=== PATIENT | male | born 1955 | race Caucasian/White ===

== ENCOUNTER 2022-12-20 14:49 | Inpatient (IN) | payer OTHER, MEDICAID ==
[~2022-12-20] VITALS: Ht 182.9 cm; Wt 127.5 kg
[2022-12-20] MEDS ORDERED: SODIUM CHLORIDE 0.9% 1,000 ML IV ONE (15:15)
[2022-12-20 15:37] LABS: Basophils # (auto) 0.1 10 ^3/uL (0-0.2); Basophils % (auto) 1.1 % (0.0-2.0); Eosinophils # (auto) 0 10 ^3/uL (0-0.8); Eosinophils % (auto) 0.1 % (0.0-7.0); Hematocrit 46.5 % (41.0-53.0); Hemoglobin 15.5 g/dL (13.5-17.5); Lymphocytes # (auto) 0.6 10 ^3/uL (0.4-5.4); Lymphocytes % (auto) 8.4 % (10.0-50.0); Mean Corpuscular Hemoglobin 30.9 pg (28.0-32.0); Mean Corpuscular Hgb Conc. 33.2 g/dL (32.0-36.0); Monocytes # (auto) 0.8 10 ^3/uL (0-1.3); Monocytes % (auto) 10.6 % (0.0-12.0); Neutrophils # (auto) 5.7 10 ^3/uL (1.6-8.6); Neutrophils % (auto) 79.8 % (37.0-80.0); Nucleated Red Blood Cells % 0.3 %; Red Cell Distribution Width 14.4 % (11.8-14.3); White Blood Cell 7.1 10^3/uL (4.4-10.8)
[2022-12-20 15:54] LABS: Albumin 3.1 g/dL (3.4-5.0); BUN/Creatinine Ratio 16.7; Calcium 8.8 mg/dL (8.5-10.1); Magnesium 1.4 mg/dL (1.6-2.6)
[2022-12-20 15:57] LABS: Lactic Acid w/Reflex 2.3 mmol/L (0.4-2.0)
[2022-12-20 15:57] LABS: Bilirubin, Total 2.1 mg/dL (0.2-1.0); Total Protein 7.4 g/dL (6.4-8.2)
[2022-12-20 16:12] LABS: Potassium 2.9 mmol/L (3.5-5.1)
[2022-12-20] MEDS ORDERED: CEFTRIAXONE SODIUM 2 GM in D5W 5% 50 ML IV ONE (17:15)
[2022-12-20] MEDS ORDERED: POTASSIUM EFFERVESENT TAB 25 MEQ PO ONE (17:15)
[2022-12-20 17:28] LABS: Urine Bacteria NONE SEEN /hpf (None Seen); Urine Blood Negative /uL (Negative); Urine Hyaline Cast MANY /lpf (0 - 2); Urine Mucus FEW (None Seen); Urine Specific Gravity 1.024 (1.001-1.035); Urine WBC 3 /hpf (0 - 3)
[2022-12-20] MEDS ORDERED: DEXTROSE (50%) 50ML SYRG IV PRN (23:00)
[2022-12-20] MEDS ORDERED: NITROGLYCERIN 0.4 MG SL TAB SL PRN (23:00)
[2022-12-20] MEDS ORDERED: ONDANSETRON HCL 4 MG/2 ML VIAL IV PRN (23:00)
[2022-12-20] MEDS ORDERED: DOCUSATE SOD 100 MG CAP PO PRN (23:00)
[2022-12-20] MEDS ORDERED: ACETAMINOPHEN 325 MG TAB PO PRN (23:00)
[2022-12-21] MEDS: HYDROcodone-ACET 5/325MG TAB PO PRN ×3 (00:29→20:22)
[2022-12-21 05:50] LABS: Basophils # (auto) 0.1 10 ^3/uL (0-0.2); Basophils % (auto) 0.9 % (0.0-2.0); Eosinophils # (auto) 0.1 10 ^3/uL (0-0.8); Eosinophils % (auto) 0.9 % (0.0-7.0); Hematocrit 45.2 % (41.0-53.0); Hemoglobin 14.8 g/dL (13.5-17.5); Lymphocytes # (auto) 1.2 10 ^3/uL (0.4-5.4); Lymphocytes % (auto) 17.1 % (10.0-50.0); Mean Corpuscular Hemoglobin 30.6 pg (28.0-32.0); Mean Corpuscular Hgb Conc. 32.8 g/dL (32.0-36.0); Mean Corpuscular Volume 93.3 fL (80.0-100.0); Monocytes # (auto) 1.1 10 ^3/uL (0-1.3); Neutrophils # (auto) 4.4 10 ^3/uL (1.6-8.6); Neutrophils % (auto) 65.1 % (37.0-80.0); Nucleated Red Blood Cells % 0.1 %; Red Blood Cells 4.85 10^6/uL (4.5-5.90); Red Cell Distribution Width 14.3 % (11.8-14.3); White Blood Cell 6.8 10^3/uL (4.4-10.8)
[2022-12-21] MEDS: SODIUM CHLOR 0.9% PF (SALINE LOCK) 10ML VIAL/SYR IV SCH ×3 (06:01→22:11)
[2022-12-21 06:12] LABS: Albumin 2.9 g/dL (3.4-5.0); Calcium 8.2 mg/dL (8.5-10.1); Potassium 3.5 mmol/L (3.5-5.1)
[2022-12-21 06:15] LABS: BUN/Creatinine Ratio 21.4; Bilirubin, Total 1.1 mg/dL (0.2-1.0); Total Protein 6.4 g/dL (6.4-8.2)
[2022-12-21] MEDS: ACCU-CHEK COMFORT CURVE STRIP VI SCH ×4 (06:41→22:11)
[2022-12-21] MEDS: InsuLIN REG 1unit/0.01ml Soln (100units/ml) SC SCH ×4 (06:41→22:14)
[2022-12-21] MEDS: FAMOTIDINE (10MG/ML) 2ML VL IV SCH (09:32)
[2022-12-21] MEDS: APIXABAN 2.5 MG TAB PO SCH ×2 (09:33→22:00)
[2022-12-21] MEDS: CARVEDILOL 3.125 MG TAB PO SCH ×2 (09:33→22:04)
[2022-12-21] MEDS: cefTRIAXone 1GM/50ML D5W 50 ML IV SCH (09:34)
[2022-12-21] MEDS ORDERED: FUROSEMIDE 20 MG/2 ML VIAL IV SCH (10:00)
[2022-12-21] MEDS ORDERED: LORazepam 2MG/ML-1ML VIAL IV PRN (12:00)
[2022-12-21 12:20] LABS: Cholesterol 93 mg/dL (< 200)
[2022-12-21 12:23] LABS: HDL Cholesterol 33 mg/dL (40-59); LDL Cholesterol 58 mg/dL (< 100); Triglycerides 77 mg/dL (< 150)
[2022-12-21] MEDS: TAMSULOSIN HYDROCHLORIDE 0.4 MG CAP PO SCH (17:37)
[2022-12-21] MEDS ORDERED: ATORVASTATIN 20 MG TAB PO SCH (22:00)
[2022-12-22] MEDS: HYDROcodone-ACET 5/325MG TAB PO PRN ×2 (02:17→21:43)
[2022-12-22] MEDS: SODIUM CHLOR 0.9% PF (SALINE LOCK) 10ML VIAL/SYR IV SCH ×3 (06:01→21:56)
[2022-12-22] MEDS: ACCU-CHEK COMFORT CURVE STRIP VI SCH ×4 (06:40→21:57)
[2022-12-22] MEDS: InsuLIN REG 1unit/0.01ml Soln (100units/ml) SC SCH ×4 (06:42→21:57)
[2022-12-22] MEDS: FAMOTIDINE (10MG/ML) 2ML VL IV SCH (09:32)
[2022-12-22] MEDS: cefTRIAXone 1GM/50ML D5W 50 ML IV SCH (09:32)
[2022-12-22] MEDS: APIXABAN 2.5 MG TAB PO SCH ×2 (09:33→21:42)
[2022-12-22] MEDS ORDERED: CARVEDILOL 3.125 MG TAB PO SCH (10:00)
[2022-12-22] MEDS ORDERED: FUROSEMIDE 20 MG/2 ML VIAL IV ONE (10:00)
[2022-12-22] MEDS: MORPHINE SULFATE INJ 2 MG/ml SYRG IV PRN (10:11)
[2022-12-22] MEDS: MAGNESIUM SULFATE 1GM/100ML 100 ML IV SCH ×2 (11:25→12:40)
[2022-12-22] MEDS: CARVEDILOL 12.5 MG TAB PO SCH ×2 (11:26→21:42)
[2022-12-22] MEDS: ATORVASTATIN 20 MG TAB PO SCH ×2 (11:27→21:43)
[2022-12-22] MEDS: SACUBITRIL-VALSARTAN 24mg/26mg TAB PO SCH ×2 (11:27→22:46)
[2022-12-22] MEDS: FUROSEMIDE 20 MG/2 ML VIAL IV SCH ×3 (17:48→18:00)
[2022-12-22] MEDS: TAMSULOSIN HYDROCHLORIDE 0.4 MG CAP PO SCH (17:48)
[2022-12-22 21:25] LABS: Basophils # (auto) 0.1 10 ^3/uL (0-0.2); Eosinophils # (auto) 0 10 ^3/uL (0-0.8); Eosinophils % (auto) 0.1 % (0.0-7.0); Hematocrit 45.1 % (41.0-53.0); Hemoglobin 14.7 g/dL (13.5-17.5); Lymphocytes # (auto) 0.7 10 ^3/uL (0.4-5.4); Lymphocytes % (auto) 8.1 % (10.0-50.0); Mean Corpuscular Hemoglobin 30.4 pg (28.0-32.0); Mean Corpuscular Hgb Conc. 32.7 g/dL (32.0-36.0); Mean Corpuscular Volume 92.9 fL (80.0-100.0); Monocytes # (auto) 0.8 10 ^3/uL (0-1.3); Monocytes % (auto) 9.9 % (0.0-12.0); Neutrophils # (auto) 6.9 10 ^3/uL (1.6-8.6); Neutrophils % (auto) 80.9 % (37.0-80.0); Nucleated Red Blood Cells % 0.1 %; Red Blood Cells 4.85 10^6/uL (4.5-5.90); Red Cell Distribution Width 14.1 % (11.8-14.3); White Blood Cell 8.5 10^3/uL (4.4-10.8)
[2022-12-22 21:37] LABS: Albumin 2.7 g/dL (3.4-5.0); BUN/Creatinine Ratio 14.6; Calcium 8.9 mg/dL (8.5-10.1); Potassium 3.3 mmol/L (3.5-5.1)
[2022-12-22 21:39] LABS: Bilirubin, Total 1.2 mg/dL (0.2-1.0); Total Protein 7.2 g/dL (6.4-8.2)
[2022-12-22] MEDS: HALOPERIDOL LACTATE 5 MG/ML INJ VIAL IM PRN (21:45)
[2022-12-22] MEDS: PIPERACILLIN-TAZOB 3.375GM 100 ML IV SCH (21:56)
[2022-12-23] MEDS: SODIUM CHLOR 0.9% PF (SALINE LOCK) 10ML VIAL/SYR IV SCH ×3 (06:00→22:11)
[2022-12-23] MEDS: PIPERACILLIN-TAZOB 3.375GM 100 ML IV SCH ×3 (06:00→22:05)
[2022-12-23 06:07] LABS: Basophils # (auto) 0.1 10 ^3/uL (0-0.2); Basophils % (auto) 0.9 % (0.0-2.0); Eosinophils # (auto) 0 10 ^3/uL (0-0.8); Eosinophils % (auto) 0.1 % (0.0-7.0); Hematocrit 42.9 % (41.0-53.0); Hemoglobin 14.1 g/dL (13.5-17.5); Lymphocytes # (auto) 0.8 10 ^3/uL (0.4-5.4); Lymphocytes % (auto) 10.2 % (10.0-50.0); Mean Corpuscular Hemoglobin 30.6 pg (28.0-32.0); Mean Corpuscular Volume 92.7 fL (80.0-100.0); Monocytes # (auto) 0.9 10 ^3/uL (0-1.3); Monocytes % (auto) 12.2 % (0.0-12.0); Neutrophils # (auto) 5.8 10 ^3/uL (1.6-8.6); Neutrophils % (auto) 76.6 % (37.0-80.0); Red Blood Cells 4.62 10^6/uL (4.5-5.90); Red Cell Distribution Width 14.5 % (11.8-14.3); White Blood Cell 7.6 10^3/uL (4.4-10.8)
[2022-12-23 06:22] LABS: Albumin 2.6 g/dL (3.4-5.0); Calcium 8.1 mg/dL (8.5-10.1); Potassium 3.5 mmol/L (3.5-5.1)
[2022-12-23 06:27] LABS: BUN/Creatinine Ratio 19.1; Bilirubin, Total 1.4 mg/dL (0.2-1.0)
[2022-12-23] MEDS: ACCU-CHEK COMFORT CURVE STRIP VI SCH ×4 (08:32→22:10)
[2022-12-23] MEDS: MORPHINE SULFATE INJ 2 MG/ml SYRG IV PRN ×2 (08:38→22:10)
[2022-12-23] MEDS: InsuLIN REG 1unit/0.01ml Soln (100units/ml) SC SCH ×4 (08:39→22:00)
[2022-12-23] MEDS: APIXABAN 2.5 MG TAB PO SCH ×2 (10:01→22:12)
[2022-12-23] MEDS: FAMOTIDINE (10MG/ML) 2ML VL IV SCH (10:01)
[2022-12-23] MEDS: CARVEDILOL 12.5 MG TAB PO SCH ×2 (10:03→22:00)
[2022-12-23] MEDS: SACUBITRIL-VALSARTAN 24mg/26mg TAB PO SCH ×2 (10:06→22:00)
[2022-12-23 13:35] VITALS: BP 103/71
[2022-12-23 17:00] VITALS: BP 113/70
[2022-12-23] MEDS ORDERED: SODIUM CHLORIDE 0.9% 1,000 ML IV SCH (17:00)
[2022-12-23] MEDS: TAMSULOSIN HYDROCHLORIDE 0.4 MG CAP PO SCH (18:17)
[2022-12-23] MEDS: FUROSEMIDE 20 MG/2 ML VIAL IV SCH (18:19)
[2022-12-23 18:23] VITALS: BP 103/71
[2022-12-23 22:00] VITALS: BP 138/81
[2022-12-23] MEDS: ATORVASTATIN 20 MG TAB PO SCH (22:00)
[2022-12-24] MEDS: HALOPERIDOL LACTATE 5 MG/ML INJ VIAL IM PRN (02:10)
[2022-12-24] MEDS ORDERED: dilTIAZem 25 MG/5 ML VIAL IV ONE (03:00)
[2022-12-24 05:00] VITALS: BP 126/68
[2022-12-24] MEDS: PIPERACILLIN-TAZOB 3.375GM 100 ML IV SCH (06:00)
[2022-12-24] MEDS: FUROSEMIDE 20 MG/2 ML VIAL IV SCH (06:00)
[2022-12-24] MEDS: SODIUM CHLOR 0.9% PF (SALINE LOCK) 10ML VIAL/SYR IV SCH ×2 (06:13→22:12)
[2022-12-24] MEDS: InsuLIN REG 1unit/0.01ml Soln (100units/ml) SC SCH ×4 (06:51→22:00)
[2022-12-24] MEDS: ACCU-CHEK COMFORT CURVE STRIP VI SCH ×4 (06:52→22:08)
[2022-12-24 09:00] VITALS: BP 110/69
[2022-12-24] MEDS: FAMOTIDINE (10MG/ML) 2ML VL IV SCH (10:17)
[2022-12-24] MEDS: APIXABAN 2.5 MG TAB PO SCH ×2 (10:17→22:08)
[2022-12-24] MEDS: SACUBITRIL-VALSARTAN 24mg/26mg TAB PO SCH ×2 (10:17→22:07)
[2022-12-24] MEDS: CARVEDILOL 12.5 MG TAB PO SCH ×2 (10:18→22:08)
[2022-12-24 13:15] VITALS: BP 97/52
[2022-12-24 13:29] LABS: Basophils # (auto) 0.1 10 ^3/uL (0-0.2); Basophils % (auto) 1.2 % (0.0-2.0); Eosinophils # (auto) 0 10 ^3/uL (0-0.8); Eosinophils % (auto) 0.6 % (0.0-7.0); Hematocrit 41.9 % (41.0-53.0); Hemoglobin 13.9 g/dL (13.5-17.5); Lymphocytes % (auto) 12.6 % (10.0-50.0); Mean Corpuscular Hemoglobin 30.5 pg (28.0-32.0); Mean Corpuscular Hgb Conc. 33.1 g/dL (32.0-36.0); Mean Corpuscular Volume 92.1 fL (80.0-100.0); Monocytes # (auto) 0.7 10 ^3/uL (0-1.3); Monocytes % (auto) 9.6 % (0.0-12.0); Neutrophils # (auto) 5.8 10 ^3/uL (1.6-8.6); Nucleated Red Blood Cells % 0.1 %; Red Blood Cells 4.55 10^6/uL (4.5-5.90); Red Cell Distribution Width 14.1 % (11.8-14.3); White Blood Cell 7.6 10^3/uL (4.4-10.8)
[2022-12-24 13:46] LABS: Albumin 2.1 g/dL (3.4-5.0); Calcium 7.9 mg/dL (8.5-10.1); Potassium 3.2 mmol/L (3.5-5.1)
[2022-12-24 13:50] LABS: BUN/Creatinine Ratio 24.8; Bilirubin, Total 0.6 mg/dL (0.2-1.0); Total Protein 6.1 g/dL (6.4-8.2)
[2022-12-24] MEDS ORDERED: POTASSIUM CHL 20 Meq TABLET PO ONE (14:45)
[2022-12-24] MEDS: ATORVASTATIN 20 MG TAB PO SCH ×2 (14:45→22:07)
[2022-12-24] MEDS ORDERED: POTASSIUM CHLORIDE 20 MEQ, LIDOCAINE 1% (LOCAL ANESTH.) 2 ML in SODIUM CHL 0.9% 100 ML IV ONE (14:45)
[2022-12-24] MEDS: HYDROcodone-ACET 5/325MG TAB PO PRN ×2 (14:58→22:08)
[2022-12-24 17:00] VITALS: BP 90/49
[2022-12-24] MEDS: TAMSULOSIN HYDROCHLORIDE 0.4 MG CAP PO SCH (18:01)
[2022-12-24 21:51] VITALS: BP 110/72
[2022-12-24] MEDS ORDERED: HALOPERIDOL LACTATE 5 MG/ML INJ VIAL IM PRN (22:00)
[2022-12-24] MEDS: AMOXICILLIN/CLAVUL 875 MG TAB PO SCH (22:06)
[2022-12-25 05:00] VITALS: BP 118/61
[2022-12-25] MEDS: SODIUM CHLOR 0.9% PF (SALINE LOCK) 10ML VIAL/SYR IV SCH ×3 (06:00→20:47)
[2022-12-25] MEDS: InsuLIN REG 1unit/0.01ml Soln (100units/ml) SC SCH ×4 (06:32→20:47)
[2022-12-25] MEDS: ACCU-CHEK COMFORT CURVE STRIP VI SCH ×4 (06:32→20:47)
[2022-12-25 09:00] VITALS: BP 113/64
[2022-12-25] MEDS: AMOXICILLIN/CLAVUL 875 MG TAB PO SCH ×2 (09:54→20:47)
[2022-12-25] MEDS: SACUBITRIL-VALSARTAN 24mg/26mg TAB PO SCH ×2 (09:54→20:29)
[2022-12-25] MEDS: APIXABAN 2.5 MG TAB PO SCH ×2 (09:54→20:29)
[2022-12-25] MEDS: HYDROcodone-ACET 5/325MG TAB PO PRN ×2 (09:55→18:39)
[2022-12-25] MEDS ORDERED: PANTOPRAZOLE 40 MG TAB PO SCH (10:00)
[2022-12-25] MEDS ORDERED: FUROSEMIDE 40 MG TAB PO SCH (10:00)
[2022-12-25] MEDS: CARVEDILOL 12.5 MG TAB PO SCH ×2 (10:20→20:45)
[2022-12-25 13:00] VITALS: BP 108/70
[2022-12-25 17:00] VITALS: BP 121/77
[2022-12-25] MEDS: TAMSULOSIN HYDROCHLORIDE 0.4 MG CAP PO SCH (18:39)
[2022-12-25] MEDS: ATORVASTATIN 20 MG TAB PO SCH (20:28)
== END 2022-12-25 20:40 | DRG 64 ==
LOC: EDBD 14:49 → ER 14:55 → OVERFLOW 22:56 → TELE-WESTW 12-23 14:03
PROVIDERS: ADMIT Nurse Practitioner Family; ATTEND Internal Medicine
DX: I63.9 Cerebral infarction, unspecified (principal); G93.41 Metabolic encephalopathy; I50.23 Acute on chronic systolic (congestive) heart failure; J96.01 Acute respiratory failure with hypoxia; E87.20 Acidosis, unspecified; I31.39 Other pericardial effusion (noninflammatory); J98.11 Atelectasis; L03.115 Cellulitis of right lower limb; L03.116 Cellulitis of left lower limb; N17.9 Acute kidney failure, unspecified; Z20.822 Contact with and (suspected) exposure to COVID-19; E11.65 Type 2 diabetes mellitus with hyperglycemia; E66.01 Morbid (severe) obesity due to excess calories; E78.5 Hyperlipidemia, unspecified; E87.6 Hypokalemia; F17.200 Nicotine dependence, unspecified, uncomplicated; I11.0 Hypertensive heart disease with heart failure; I48.91 Unspecified atrial fibrillation; J32.0 Chronic maxillary sinusitis; N40.0 Benign prostatic hyperplasia without lower urinary tract symptoms; Z79.01 Long term (current) use of anticoagulants; Z79.84 Long term (current) use of oral hypoglycemic drugs; Z79.899 Other long term (current) drug therapy; Z68.35 Body mass index [BMI] 35.0-35.9, adult
CPT/HCPCS: 36415; 70450; 70551; 71045; 74176; 80053; 80061; 81001; 82140; 82962; 83036; 83605; 83735; 83880; 84132; 84484; 85025; 87040; 87426; 92610; 93005; 93306; 93886; 93970; 95819; 97163; G0378; J0696; J1815; J2001; J2543; J3490; J7060

== ENCOUNTER 2025-10-08 19:42 | Inpatient (IN) | payer OTHER, MEDICAID ==
[~2025-10-08] VITALS: Ht 170.2 cm; Wt 104.9 kg
[2025-10-08] MEDS: INSULIN DRIP 100 UNIT/100ML 100 ML IV SCH
--- NOTE | 2025-10-08 20:17 | ED.PDOC ---
History of Present Illness HPI Comments 70 y/o obese M is BIBA from private residence for c/c of ALOC. Per EMS personnel report, patient lives at home alone and was found on the floor by neighbors since 1500, this afternoon. Patient is reported to be oriented to name, currently. Limited known history of DM. Patient has not been taking his DM medic ations for the past 2 months. On scene blood glucose read 'HI." No further acute symptoms reported. Additional history is limited, due to patient's current condition and absence of family/property caretaker historians. Per previous [facility] medical record, patient has a history of CVA, AFib, CHF, HTN, pericardial effusion, HLD, DM II, JASON, BPH, and bilateral lower extremity cellulitis. Chief Complaint: ALOC Time Seen by MD: 19:50 Reviewed Notes: Nurses Notes, Wood Milling Machine Hand Notes, Medications, Allergies Allergies: Coded Allergies: NO KNOWN ALLERGIES (Unverified , 12/21/22) Mode of Arrival: EMS Past Medical History PAST MEDICAL HISTORY: AFIB, CHF, CVA, DM, High Lipids, HTN Past Medical History (Other): pericardial effusion, JASON, BPH, bilateral lower extremity cellulitis Surgical History: Unknown, Unobtainable, Pt Confused Family History Family History: Unknown, Unobtainable, Pt Confused Social History Smoker: Unknown, Unobtainable, Pt Confused Alcohol: Unknown, Unobtainable, Pt Confused Drugs: Unknown, Unobtainable, Pt Confused Lives In: Home All Other Systems: Deferred (due to patient being altered ) Physical Exam General Appearance: Moderate Distress, Obese HEENT: Normal ENT Inspection, Pharynx Normal, TMs Normal Neck: Full Range of Motion, Non-Tender, Normal, Normal Inspection Respiratory: Chest Non-Tender, Lungs Clear, No Accessory Muscle Use, No Respiratory Distress, Normal Breath Sounds Cardiovascular: Irregular, No Edema, No JVD, No Murmur, No Gallop, Tachycardia Breast Exam: Deferred Gastrointestinal: No Organomegaly, Non Tender, No Pulsatile Mass, Normal Bowel Sounds, Soft Genitalia: Deferred Pelvic: Deferred Rectal: Deferred Extremities: No calf tenderness, Normal capillary refill, Pedal edema Musculoskeletal : Apperance: Normal Neurologic: trim machine operator II-XII nml as Tested, Motor Weakness, No Sensory Deficits, Other (Altered mental status) Cerebellar Function: Normal Reflexes: Normal Skin: Dry, Pallor, Warm Lymphatic: No Adenopathy Was a procedure done? Was a procedure done?: No Differential Dx Considerations may include: hyperglycemia, DKA,, metabolic encephalopathy, dehydration, electrolyte imbalan ce, intracranial hemorrhaging, CVA/TIA, seizure, TBI, among others X-Ray, Labs, Meds, VS Vital Signs Date Time Temp Pulse Resp B/P (MAP) Pulse Ox O2 Delivery O2 Flow Rate FiO2 10/08/25 22:00 97.2 119 17 130/78 (95) 94 97.2 10/08/25 21:22 17 94 Room Air* 0 21 10/08/25 20:30 97.2 98 17 116/7 (43) 94 97.2 10/08/25 19:46 97.8 130 20 125/82 98 97.8 Lab Test 10/08/25 22:19 10/08/25 21:56 10/08/25 20:58 10/08/25 20:09 Range/Units Urine Color Light-yellow Yellow Urine Clarity Clear Clear Urine pH 5.0 5.0-9.0 Urine Specific [place] 1.020 1.001-1.035 Urine Protein Negative Negative Urine Ketones Trace Negative Urine Blood Trace H Negative /uL Urine Nitrite Negative Negative Urine Bilirubin Negative Negative Urine Urobilinogen Normal Negative mg/dL Urine Leukocyte Esterase Negative Negative /uL Urine RBC 5 0 - 3 /hpf Urine Microscopic WBC 2 0-3 /HPF Urine Squamous Epithelial Cells Few <5 /hpf Urine Bacteria None seen None Seen /hpf Urine Hyaline Casts Few 0 - 2 /lpf Urine Glucose 4+ H Normal mg/dL Urine Opiates Screen Neg NEGATIVE Urine Fentanyl Screen Neg NEGATIVE Urine Barbiturates Screen Neg NEGATIVE Urine Phencyclidine Screen Neg NEGATIVE Urine Amphetamines Screen Neg NEGATIVE Urine Benzodiazepines Screen Neg NEGATIVE Urine Cocaine Screen Neg NEGATIVE Urine Cannabinoids Screen Neg NEGATIVE Lactic Acid Level 2.1 *H 2.4 *H 0.4-2.0 mmol/L Troponin I High Sensitivity 24 25 </=54 ng/L White Blood Count 8.5 4.4-10.8 10^3/uL Red Blood Count 5.72 4.5-5.90 10^6/uL Hemoglobin 18.3 H 13.5-17.5 g/dL Hematocrit 53.0 41.0-53.0 % Mean Corpuscular Volume 92.7 80.0-100.0 fL Mean Corpuscular Hemoglobin 32.0 28.0-32.0 pg Mean Corpuscular Hemoglobin Concent 34.5 32.0-36.0 g/dL Red Cell Distribution Width 13.3 11.8-14.3 % Platelet Count 208 140-450 10^3/uL Mean Platelet Volume 9.5 6.9-10.8 fL Neutrophils (%) (Auto) 84.2 H 37.0-80.0 % Lymphocytes (%) (Auto) 5.7 L 10.0-50.0 % Monocytes (%) (Auto) 9.7 0.0-12.0 % Eosinophils (%) (Auto) 0.2 0.0-7.0 % Basophils (%) (Auto) 0.2 0.0-2.0 % Neutrophils # (Auto) 7.2 1.6-8.6 10 ^3/uL Lymphocytes # (Auto) 0.5 0.4-5.4 10 ^3/uL Monocytes # (Auto) 0.8 0-1.3 10 ^3/uL Eosinophils # (Auto) 0 0-0.8 10 ^3/uL Basophils # (Auto) 0 0-0.2 10 ^3/uL Nucleated Red Blood Cells 0.1 % Sodium Level 135 L 136-145 mmol/L Potassium Level 4.4 3.5-5.1 mmol/L Chloride Level 97 L 98-107 mmol/L Carbon Dioxide Level 22 20-31 mmol/L Anion Gap 16 H 5-15 Blood Urea Nitrogen 74 H 9-23 mg/dL Creatinine 2.52 H 0.700-1.30 mg/dL Glomerular Filtration Rate Calc 27 >90 mL/min BUN/Creatinine Ratio 29.4 H 10.0-20.0 Serum Glucose 562 *H 74-106 mg/dL Hemoglobin A1c Pending Serum Osmolality Pending Calcium Level 10.4 8.7-10.4 mg/dL Beta-Hydroxybutyric Acid 2.350 H < 0.4 mmol/L Plasma/Serum Blood Alcohol < 3.0 <10 mg/dL Current Medications Medications (Trade) Dose Ordered Sig/Bonita Route Start Time Stop Time Status Last Admin Sodium Chloride 1,000 ml @ 1,000 mls/hr Q1H ONCE IV 10/08/25 20:30 10/08/25 21:29 DC 10/08/25 20:35 Insulin Human Regular (InsuLIN R) 5 units ONCE ONCE IV 10/08/25 20:30 10/08/25 20:31 DC 10/08/25 20:35 Vancomycin HCl 250 ml @ 250 mls/hr ONCE ONCE IV 10/08/25 21:30 10/08/25 22:29 DC 10/08/25 22:25 Ceftriaxone Sodium 50 ml @ 100 mls/hr ONCE ONCE IV 10/08/25 21:30 10/08/25 21:59 DC 10/08/25 21:50 Sodium Chloride 2,000 ml @ 2,000 mls/hr ONCE ONCE IV 10/08/25 21:45 10/08/25 22:44 DC 10/08/25 21:45 Insulin Human Regular (InsuLIN R) 10 units ONCE ONCE IV 10/08/25 21:45 10/08/25 21:46 DC 10/08/25 21:52 IV Hep-Lock was established. We did get an initial lactic acid level that was elevated There is a concern that this patient may have sepsis so we did give the patient normal saline per sepsis protocol The chemistry panel showed an anion gap of 16 The BUN is 74 and the creatinine is 2.52 The patient's glucose is also elevated at 562 The urine tox is negative The urine test is negative for any infection After blood cultures were done, the patient was started on vancomycin and Rocephin The patient was also given insulin 5 units IV push initially and then 10 units IV push The patient's heart rate has been significantly elevated and it seems to be atrial fibrillation with rapid response The patient is being started on Cardizem at 15 mg IV push The patient was also started on a Cardizem drip The patient is being admitted at this time. Images Reviewed?: Images reviewed and evaluated by me Time of 1ST Reevaluation: 20:20 Reevaluation 1ST: Unchanged Time of 2ND Reevaluation: 23:33 Reevaluation 2ND: Unchanged Patient Education/Counseling: Diagnosis, Treatment, Prognosis Family Education/Counseling: No Family Present SEPSIS Sepsis Screen Date sepsis recognized/suspect: Oct 08, 2025 Time Sepsis recognized/suspect: 1939 Recent Procedure: No On Antibiotic Therapy: No Respiratory Rate >20: No Heart Rate >90: Yes Temp<36 C (96.8 F) or >38.3 C: No SBP <90 or MAP <65 mmHG: No New Acute Mental Status Change: No Is the patient on CPAP, BIPAP,: No Physician Orders Chest Portable (10/08/25 19:51) Head Without Contrast (10/08/25 19:51) Cell Tender Helper (10/08/25 19:51) Pulse Oximetry (10/08/25 19:51) Blood Pressure (10/08/25 19:51) Heplock Iv (10/08/25 19:51) Blood Culture (10/08/25 19:51) Electrocardigram (10/08/25 19:51) Bee Catheters (10/08/25 ) Vital Signs Date Time Temp Pulse Resp B/P (MAP) Pulse Ox O2 Delivery O2 Flow Rate FiO2 10/08/25 22:00 97.2 119 17 130/78 (95) 94 97.2 10/08/25 21:22 17 94 Room Air* 0 21 10/08/25 20:30 97.2 98 17 116/7 (43) 94 97.2 10/08/25 19:46 97.8 130 20 125/82 98 97.8 Laboratory Tests Test 10/08/25 20:09 10/08/25 21:56 Lactic Acid Level 2.4 mmol/L (0.4-2.0) *H 2.1 mmol/L (0.4-2.0) *H White Blood Count 8.5 10^3/uL (4.4-10.8) Medications Medications Dose Ordered Sig/Bonita Route Start Time Stop Time Status Last Admin Dose Admin Ceftriaxone Sodium 50 ml @ 100 mls/hr ONCE ONCE IV 10/08/25 21:30 10/08/25 21:59 DC 10/08/25 21:50 Insulin Human Regular 5 units ONCE ONCE IV 10/08/25 20:30 10/08/25 20:31 DC 10/08/25 20:35 Insulin Human Regular 10 units ONCE ONCE IV 10/08/25 21:45 10/08/25 21:46 DC 10/08/25 21:52 Sodium Chloride 1,000 ml @ 1,000 mls/hr Q1H ONCE IV 10/08/25 20:30 10/08/25 21:29 DC 10/08/25 20:35 Sodium Chloride 2,000 ml @ 2,000 mls/hr ONCE ONCE IV 10/08/25 21:45 10/08/25 22:44 DC 10/08/25 21:45 Vancomycin HCl 250 ml @ 250 mls/hr ONCE ONCE IV 10/08/25 21:30 10/08/25 22:29 DC 10/08/25 22:25 Departure 1 Departure Time of Disposition: 23:32 Impression: Primary Impression: Atrial fibrillation with rapid ventricular response Additional Impressions: Altered mental status Qualified Codes: R41.82 - Altered mental status, unspecified Elevated lactic acid level Hyperglycemia Disposition: ADMITTED INPATIENT Admit to: [facility] Condition: Fair Critical Care Note Critical Care Time?: Yes (45 min-critical care time only) Stability Stability form required: Yes Unstable for transfer: ICU, CCU, PCU, [facility] (Intensive VS monitoring), May require CPR (possible rapid decline), ED Physician Assesment (Clinical assesment) Heart Score Heart Score: Heart Score Response (Comments) Value History N/A 0 EKG N/A 0 Age N/A 0 Risk Factors N/A 0 Troponin N/A 0 Total 0 I personally scribed for JONATHAN GARDUNO MD ([email or web address]) on 10/08/25 at 20:17. Electronically submitted by Enrico Hardy [email or web address]). JONATHAN GARDUNO MD Oct 08, 2025 20:17
[2025-10-08] MEDS: InsuLIN REG 1unit/0.01ml Soln (100units/ml) IV ONE ×2 (20:35→21:52)
[2025-10-08] MEDS: SODIUM CHLORIDE 0.9% 1,000 ML IV ONE (20:35)
[2025-10-08 20:39] LABS: Hematocrit 53.0 % (41.0-53.0); Hemoglobin 18.3 g/dL (13.5-17.5); Mean Corpuscular Hemoglobin 32.0 pg (28.0-32.0); Mean Corpuscular Volume 92.7 fL (80.0-100.0); Nucleated Red Blood Cells % 0.1 %
[2025-10-08 20:46] LABS: Potassium 4.4 mmol/L (3.5-5.1)
[2025-10-08 20:47] LABS: Anion Gap 16 (5-15); Calcium 10.4 mg/dL (8.7-10.4); Carbon Dioxide 22 mmol/L (20-31)
[2025-10-08 20:52] LABS: BUN/Creatinine Ratio 29.4 (10.0-20.0)
[2025-10-08 20:56] LABS: Blood Urea Nitrogen 74 mg/dL (9-23); Chloride 97 mmol/L (98-107); Sodium 135 mmol/L (136-145)
[2025-10-08 20:57] LABS: Glucose 562 mg/dL (74-106)
--- NOTE | 2025-10-08 21:00 | DVH ---
CHEST RADIOGRAPH Indication: aloc Technique: Single frontal view of the chest was obtained COMPARISON: CHEST PORTABLE on DOS: 12/20/22, CXRP on DOS: 12/20/22 FINDINGS: Lines and Tubes: None Lungs: Mild vascular congestion. Pleura: No effusion. No pneumothorax. Cardiomediastinal contours: Unremarkable Bones: Unremarkable IMPRESSION: Mild vascular congestion.
[2025-10-08 21:13] LABS: Lactic Acid w/Reflex 2.4 mmol/L (0.4-2.0)
[2025-10-08 21:22] VITALS: RESP 17; O2SAT 94
[2025-10-08] MEDS: SODIUM CHLORIDE 0.9% 2,000 ML IV ONE ×2 (21:45→21:50)
[2025-10-08] MEDS: VANCOMYCIN 1GM/250ML KIT 250 ML IV ONE (22:25)
[2025-10-08 23:01] LABS: Urine Protein, UAD Negative (Negative)
[2025-10-08] MEDS ORDERED: MORPHINE SULFATE INJ 2 MG/ml SYRG IV PRN (23:15)
[2025-10-08] MEDS ORDERED: NITROGLYCERIN 0.4 MG SL TAB SL PRN (23:15)
[2025-10-08] MEDS ORDERED: ONDANSETRON HCL 4 MG/2 ML VIAL IV PRN (23:15)
[2025-10-08] MEDS ORDERED: DEXTROSE (50%) 50ML SYRG IV PRN (23:15)
[2025-10-08] MEDS: INSULIN LANTUS (GLARGINE) 1 /0.01ml (100units/ml) SC ONE (23:15)
[2025-10-08 23:21] LABS: Amphetamine Screen, Urine Neg (NEGATIVE); Barbiturate Scree,Urine Neg (NEGATIVE); Benzodiazephine Screen, Urine Neg (NEGATIVE); Cannabinoid Screen, Urine Neg (NEGATIVE); Cocaine Screen, Urine Neg (NEGATIVE); Opiate Scree,Urine Neg (NEGATIVE); Phencyclidine Screen, Urine Neg (NEGATIVE)
--- NOTE | 2025-10-08 23:30 | DVH ---
EXAM: CT HEAD WITHOUT CONTRAST INDICATION: aloc TECHNIQUE: CT of the head without intravenous contrast. Radiation Dose : 1. Head: CT Dose: CTDI volume is 67.42 mGy. Dose-length product is 1193.43 mGy*cm The dose indicators for CT are the volume Computed Tomography (CT) Dose Index (CTDIvol) and the Dose Length Product (DLP), and are measured in units of mGy and mGy-cm, respectively. These indicators are not patient dose, but values generated from the CT scanner acquisition factors. The report includes radiation exposure data for exposures received during this examination. COMPARISON: BRAIN HEAD WO CONTRAST on DOS: 12/21/22, HEAD WITHOUT CONTRAST on DOS: 12/20/22 FINDINGS: There is no evidence of acute intracranial hemorrhage, extra-axial collection, mass effect, midline shift, herniation or hydrocephalus. Chronic appearing medial right occipital infarct. Increased prominence of the ventricles, sulci and cisterns consistent with sequelae of atrophic cortical volume loss. The cobb-white differentiation is intact. Moderate diffuse confluent periventricular and subcortical white matter hypoattenuation is nonspecific but may be related to small vessel ischemic disease. Chronic appearing right maxillary sinus opacification and mucosal thickening within the right ethmoid sinus. The remaining visualized paranasal sinuses and mastoid air cells are clear. The surrounding soft tissues and osseous structures are unremarkable. IMPRESSION: 1. No acute intracranial abnormality. 2. Chronic sequelae of microangiopathy and atrophic cortical volume loss. 3. Chronic appearing medial right occipital infarct. 4. Chronic appearing right maxillary sinus opacification and mucosal thickening within the right ethmoid sinus. Radiation optimization: All CT scans at this facility use at least one of these dose optimization techniques: automated exposure control mA and/or kV adjustment per patient size (includes targeted exams where dose is matched to clinical indication) or iterative reconstruction.
[2025-10-08] MEDS: dilTIAZem 25 MG/5 ML VIAL IV ONE (23:31)
[2025-10-08 23:34] LABS: Base Excess -7.4 mmol/L (-2.0-3.0)
--- NOTE | 2025-10-08 23:34 | DVHHP2 ---
History of Present Illness Reason for Visit: Altered mental status History of Present Illness 70-year-old male presents for evaluation of altered mental status. Patient resides at a board and care facility. He was found confused on the floor by his roommates. Patient is currently lethargic oriented x1. No slurred speech or unilateral weakness noted. Past Medical History CHF, AFib, diabetes mellitus, CVA, dyslipidemia Past Surgical History Unknown Family History Noncontributory Smoke: No ALCOHOL: none Drugs: None Review of Systems Review of Systems Review of systems are limited due to the patient's altered mental status. Allergies: Coded Allergies: NO KNOWN ALLERGIES (Unverified , 12/21/22) Medications Current Medications Medications Dose Ordered Sig/Bonita Route Start Time Stop Time Status Last Admin Dose Admin Sodium Chloride 1,000 ml @ 500 mls/hr Q2H IV 10/08/25 23:15 10/09/25 03:14 UNV Insulin Human (Reg)/Sodium Chloride 100 ml @ 0.5 mls/hr Q24H IV 10/08/25 23:15 UNV Dextrose 50 ml UD PRN IV 10/08/25 23:15 UNV Diagnostic Test (Pha) 1 strip Q90MIN 10/09/25 00:00 UNV Insulin Glargine 15 units DAILY SC 10/09/25 10:00 UNV Ceftriaxone Sodium 50 ml @ 100 mls/hr DAILY@09 IV 10/09/25 09:00 UNV Ondansetron HCl 4 mg Q4HP PRN IV 10/08/25 23:15 UNV Enoxaparin Sodium 40 mg DAILY SC 10/09/25 10:00 UNV Nitroglycerin 0.4 mg Q5MINP PRN SL 10/08/25 23:15 UNV Morphine Sulfate 2 mg Q30M PRN IV 10/08/25 23:15 UNV Exam Vital Signs Vital Signs Date Time Temp Pulse Resp B/P (MAP) Pulse Ox O2 Delivery O2 Flow Rate FiO2 10/08/25 22:00 97.2 119 17 130/78 (95) 94 97.2 10/08/25 21:22 Room Air* 0 21 Exam Gen: 70-year-old male in mild distress Skin: Warm, dry, normal color and texture, no rash. HEENT: Normocephalic atraumatic, mucous membranes moist and pink. Neck: Cervical and supraclavicular nodes normal without enlargement, trachea is midline, thyroid gland is normal without masses. Pulmonary: Clear to auscultation and percussion bilaterally. Cardiac: Sinus tachycardia Abdomen: Soft, nontender, nondistended, bowel sounds present all 4 quadrants, no guarding, no rigidity, no organomegaly. Extremities: No cyanosis, clubbing, no edema Neuro: Lethargic, no focal motor deficits. Labs/Xrays AGE / SEX: 70 / M ADM STATUS: REG ER SERVICE 50 ORDERING PHYSICIAN: JONATHAN GARDUNO MD PROCEDURE(s): CXRP - CHEST PORTABLE REASON: aloc ORDER NUMBER(s): [id number], ACCESSION NUMBER(s): [id number] CHEST RADIOGRAPH Indication: aloc Technique: Single frontal view of the chest was obtained COMPARISON: CHEST PORTABLE on DOS: 12/20/22, CXRP on DOS: 12/20/22 FINDINGS: Lines and Tubes: None Lungs: Mild vascular congestion. Pleura: No effusion. No pneumothorax. Cardiomediastinal contours: Unremarkable Bones: Unremarkable IMPRESSION: Mild vascular congestion. Labs Test 10/08/25 22:19 10/08/25 21:56 10/08/25 20:58 10/08/25 20:09 Range/Units Urine Color Light-yellow Yellow Urine Clarity Clear Clear Urine pH 5.0 5.0-9.0 Urine Specific [place] 1.020 1.001-1.035 Urine Protein Negative Negative Urine Ketones Trace Negative Urine Blood Trace H Negative /uL Urine Nitrite Negative Negative Urine Bilirubin Negative Negative Urine Urobilinogen Normal Negative mg/dL Urine Leukocyte Esterase Negative Negative /uL Urine RBC 5 0 - 3 /hpf Urine Microscopic WBC 2 0-3 /HPF Urine Squamous Epithelial Cells Few <5 /hpf Urine Bacteria None seen None Seen /hpf Urine Hyaline Casts Few 0 - 2 /lpf Urine Glucose 4+ H Normal mg/dL Urine Opiates Screen Neg NEGATIVE Urine Fentanyl Screen Neg NEGATIVE Urine Barbiturates Screen Neg NEGATIVE Urine Phencyclidine Screen Neg NEGATIVE Urine Amphetamines Screen Neg NEGATIVE Urine Benzodiazepines Screen Neg NEGATIVE Urine Cocaine Screen Neg NEGATIVE Urine Cannabinoids Screen Neg NEGATIVE Lactic Acid Level 2.1 *H 0.4-2.0 mmol/L Troponin I High Sensitivity 24 </=54 ng/L White Blood Count 8.5 4.4-10.8 10^3/uL Red Blood Count 5.72 4.5-5.90 10^6/uL Hemoglobin 18.3 H 13.5-17.5 g/dL Hematocrit 53.0 41.0-53.0 % Mean Corpuscular Volume 92.7 80.0-100.0 fL Mean Corpuscular Hemoglobin 32.0 28.0-32.0 pg Mean Corpuscular Hemoglobin Concent 34.5 32.0-36.0 g/dL Red Cell Distribution Width 13.3 11.8-14.3 % Platelet Count 208 140-450 10^3/uL Mean Platelet Volume 9.5 6.9-10.8 fL Neutrophils (%) (Auto) 84.2 H 37.0-80.0 % Lymphocytes (%) (Auto) 5.7 L 10.0-50.0 % Monocytes (%) (Auto) 9.7 0.0-12.0 % Eosinophils (%) (Auto) 0.2 0.0-7.0 % Basophils (%) (Auto) 0.2 0.0-2.0 % Neutrophils # (Auto) 7.2 1.6-8.6 10 ^3/uL Lymphocytes # (Auto) 0.5 0.4-5.4 10 ^3/uL Monocytes # (Auto) 0.8 0-1.3 10 ^3/uL Eosinophils # (Auto) 0 0-0.8 10 ^3/uL Basophils # (Auto) 0 0-0.2 10 ^3/uL Nucleated Red Blood Cells 0.1 % Sodium Level 135 L 136-145 mmol/L Potassium Level 4.4 3.5-5.1 mmol/L Chloride Level 97 L 98-107 mmol/L Carbon Dioxide Level 22 20-31 mmol/L Anion Gap 16 H 5-15 Blood Urea Nitrogen 74 H 9-23 mg/dL Creatinine 2.52 H 0.700-1.30 mg/dL Glomerular Filtration Rate Calc 27 >90 mL/min BUN/Creatinine Ratio 29.4 H 10.0-20.0 Serum Glucose 562 *H 74-106 mg/dL Calcium Level 10.4 8.7-10.4 mg/dL Beta-Hydroxybutyric Acid 2.350 H < 0.4 mmol/L Plasma/Serum Blood Alcohol < 3.0 <10 mg/dL SEPSIS Sepsis Screen Date sepsis recognized/suspect: Oct 08, 2025 Time Sepsis recognized/suspect: 2029 Recent Procedure: No On Antibiotic Therapy: No Respiratory Rate >20: No Heart Rate >90: Yes Temp<36 C (96.8 F) or >38.3 C: No SBP <90 or MAP <65 mmHG: No New Acute Mental Status Change: No Is the patient on CPAP, BIPAP,: No Physician Orders Chest Portable (10/08/25 19:51) Head Without Contrast (10/08/25 19:51) Learning And Development Administrator (10/08/25 19:51) Pulse Oximetry (10/08/25:51) Blood Pressure (10/08/25 19:51) Heplock Iv (10/08/25 19:51) Blood Culture (10/08/25 19:51) Electrocardigram (10/08/25 19:51) Bee Catheters (10/08/25 ) Diltiazem 125mg/125ml Bag Kit (Cardizem) (10/08/25 23:15) Insulin Drip Protocol (10/08/25 ) Sodium Chloride 0.9% (10/08/25 23:15) Insulin Drip 100 Unit/100ml (Myxredlin 1 (10/08/25 23:15) Dextrose 50% Syringe (10/08/25 23:15) Glucose Blood (Accu-Chek Comfort Curve T (10/09/25 00:00) Osmolality, Serum (10/08/25 23:11) Abg W/ Co-Ox (10/08/25 23:11) Basic Metabolic Panel (10/08/25 23:11) Basic Metabolic Panel (10/09/25 05:11) Basic Metabolic Panel (10/09/25 11:11) Basic Metabolic Panel (10/09/25 17:11) Neurological Assessment (10/08/25 23:11) Vs/Hemodynamics .PER UNIT PROTOCOL (10/08/25 23:11) Insulin Lantus (Glargine) (Lantus) (10/09/25 10:00) Hemoglobin A1c (10/08/25 23:11) Ceftriaxone 1gm/50ml (Rocephin) (10/09/25 09:00) Admit (10/08/25 23:11) Ondansetron Hcl (Zofran) (10/08/25 23:15) Complete Blood Count (10/09/25 04:00) Comprehensive Metabolic Panel (10/09/25 04:00) Npo (Nothing By Mouth) Diet (10/09/25 Breakfast) Condition: Critical (10/08/25 23:11) Bedrest With Bathroom Privileg (10/08/25 23:11) Nitroglycerin Sublingual (Ntrostat Subli (10/08/25 23:15) Morphine Sulfate Injection (10/08/25 23:15) Stat Ekg For Chest Pain (10/08/25 23:11) Notify Of Changes From Base (10/08/25 23:11) Hydraulic Punch Press Operator For 24 Hours (10/08/25 23:11) Emergency Dysrhythmia Protocol (10/08/25 23:11) Rhythm Strips Once Every Shift (10/08/25 23:11) Oxygen By Nasal Cannula (10/08/25 23:11) Phosphorus (10/08/25 23:11) Enoxaparin Sodium (Lovenox) (10/09/25 10:00) Vital Signs Date Time Temp Pulse Resp B/P (MAP) Pulse Ox O2 Delivery O2 Flow Rate FiO2 10/08/25 22:00 97.2 119 17 130/78 (95) 94 97.2 10/08/25 21:22 17 94 Room Air* 0 21 10/08/25 20:30 97.2 98 17 116/7 (43) 94 97.2 10/08/25 19:46 97.8 130 20 125/82 98 97.8 Laboratory Tests Test 10/08/25 20:09 10/08/25 21:56 Lactic Acid Level 2.4 mmol/L (0.4-2.0) *H 2.1 mmol/L (0.4-2.0) *H White Blood Count 8.5 10^3/uL (4.4-10.8) Medications Medications Dose Ordered Sig/Bonita Route Start Time Stop Time Status Last Admin Dose Admin Ceftriaxone Sodium 50 ml @ 100 mls/hr ONCE ONCE IV 10/08/25 21:30 10/08/25 21:59 DC 10/08/25 21:50 100 MLS/HR Insulin Human Regular 5 units ONCE ONCE IV 10/08/25 20:30 10/08/25 20:31 DC 10/08/25 20:35 5 UNITS Insulin Human Regular 10 units ONCE ONCE IV 10/08/25 21:45 10/08/25 21:46 DC 10/08/25 21:52 10 UNITS Sodium Chloride 1,000 ml @ 1,000 mls/hr Q1H ONCE IV 10/08/25 20:30 10/08/25 21:29 DC 10/08/25 20:35 1,000 MLS/HR Sodium Chloride 2,000 ml @ 2,000 mls/hr ONCE ONCE IV 10/08/25 21:45 10/08/25 22:44 DC 10/08/25 21:45 2,000 MLS/HR Vancomycin HCl 250 ml @ 250 mls/hr ONCE ONCE IV 10/08/25 21:30 10/08/25 22:29 DC 10/08/25 22:25 250 MLS/HR Assessment/Plan Assessment/Plan Assessment Diabetic ketoacidosis Metabolic encephalopathy Acute kidney injury Plan Admit the patient to [facility] to the hospitalist DKA protocol Head CT pending Continue treatment per orders Total critical care time excluding procedures performed is 50 minutes. Plan discussed with: Other My Orders Orders - CARINE LOZANO Procedure Category Date Status Time Insulin Drip Protocol MATILDA 10/08/25 In Process Sodium Chloride 0.9% PHA 10/08/25 In Process 23:15 Insulin Drip 100 PHA 10/08/25 In Process Unit/100ml (Myxredlin 23:15 Dextrose 50% Syringe PHA 10/08/25 In Process 23:15 Glucose Blood PHA 10/09/25 In Process (Accu-Chek Comfort 00:00 Osmolality, Serum LAB 10/08/25 In Process 23:11 Abg W/ Co-Ox RT 10/08/25 Logged 23:11 Basic Metabolic Panel LAB 10/08/25 Logged 23:11 Basic Metabolic Panel LAB 10/09/25 Verified 05:11 Basic Metabolic Panel LAB 10/09/25 Verified 11:11 Basic Metabolic Panel LAB 10/09/25 Verified 17:11 Neurological MATILDA 10/08/25 In Process Assessment 23:11 Vs/Hemodynamics MATILDA 10/08/25 In Process 23:11 Insulin Lantus PHA 10/09/25 In Process (Glargine) (Lantus) 10:00 Hemoglobin A1c LAB 10/08/25 In Process 23:11 Ceftriaxone 1gm/50ml PHA 10/09/25 In Process (Rocephin) 09:00 Admit ADMIT 10/08/25 Transmitted 23:11 Ondansetron Hcl PHA 10/08/25 In Process (Zofran) 23:15 Complete Blood Count LAB 10/09/25 Verified 04:00 Comprehensive LAB 10/09/25 Verified Metabolic Panel 04:00 Npo (Nothing By DIET 10/09/25 Transmitted Mouth) Diet Breakfast Condition: Critical MATILDA 10/08/25 In Process 23:11 Bedrest With Bathroom MATILDA 10/08/25 In Process Privileg 23:11 Nitroglycerin PHA 10/08/25 In Process Sublingual (Ntrostat 23:15 Morphine Sulfate PHA 10/08/25 In Process Injection 23:15 Stat Ekg For Chest MATILDA 10/08/25 In Process Pain 23:11 Notify Of Changes MATILDA 10/08/25 In Process From Base 23:11 Hydraulic Punch Press Operator For MATILDA 10/08/25 In Process 24 Hours 23:11 Emergency Dysrhythmia [facility]ANNER 10/08/25 In Process Protocol 23:11 Rhythm Strips Once MATILDA 10/08/25 In Process Every Shift 23:11 Oxygen By Nasal RT 10/08/25 Transmitted Cannula 23:11 Phosphorus LAB 10/08/25 Logged 23:11 Enoxaparin Sodium PHA 10/09/25 In Process (Lovenox) 10:00 Date of Service: Oct 08, 2025 Billing Provider: CARINE LOZANO Common Visit Codes: [id number] CARE [id number] MIN CARINE LOZANO Oct 08, 2025 23:34
[2025-10-08 23:56] LABS: Potassium 4.2 mmol/L (3.5-5.1); Sodium 142 mmol/L (136-145)
[2025-10-08 23:57] LABS: Anion Gap 15 (5-15); Calcium 9.2 mg/dL (8.7-10.4)
[2025-10-09] VITALS (34 sets, daily range): BP systolic 100–154; BP diastolic 57–93; PULSE 86–121; RESP 11–19; TEMP 97.6–98.9; O2SAT 88–97
[2025-10-09 00:02] LABS: BUN/Creatinine Ratio 38.8 (10.0-20.0)
[2025-10-09 00:11] LABS: Carbon Dioxide 20 mmol/L (20-31); Chloride 107 mmol/L (98-107); Glucose 336 mg/dL (74-106)
[2025-10-09 00:13] LABS: Blood Urea Nitrogen 81 mg/dL (9-23)
[2025-10-09] MEDS: INSULIN LANTUS (GLARGINE) 1 /0.01ml (100units/ml) SC ONE (00:30)
[2025-10-09] MEDS: SODIUM CHLORIDE 0.9% 1,000 ML IV SCH (01:15)
[2025-10-09 05:20] LABS: Hematocrit 45.3 % (41.0-53.0); Hemoglobin 15.6 g/dL (13.5-17.5); Mean Corpuscular Hemoglobin 31.3 pg (28.0-32.0); Mean Corpuscular Volume 90.9 fL (80.0-100.0); Nucleated Red Blood Cells % 0.0 %
[2025-10-09 05:36] LABS: Alanine Aminotransferase 14 U/L (7-40); Albumin 3.2 g/dL (3.2-4.8); Alkaline Phosphatase 56 U/L (46-116); Anion Gap 12 (5-15); BUN/Creatinine Ratio 37.4 (10.0-20.0); Bilirubin, Total 0.8 mg/dL (0.2-1.0); Calcium 8.7 mg/dL (8.7-10.4); Carbon Dioxide 21 mmol/L (20-31); Potassium 3.8 mmol/L (3.5-5.1); Total Protein 6.2 g/dL (5.7-8.2)
[2025-10-09 05:42] LABS: Blood Urea Nitrogen 58 mg/dL (9-23); Chloride 114 mmol/L (98-107); Glucose 165 mg/dL (74-106); Sodium 147 mmol/L (136-145)
[2025-10-09] MEDS ORDERED: DEXTROSE (50%) 50ML SYRG IV PRN (09:30)
[2025-10-09] MEDS: SOD CHL 0.45% 1,000 ML IV SCH (09:49)
[2025-10-09] MEDS: AMIODARONE BOLUS KIT 100 ML IV ONE (09:58)
[2025-10-09] MEDS: INSULIN LANTUS (GLARGINE) 1 /0.01ml (100units/ml) SC SCH (11:15)
[2025-10-09] MEDS: ENOXAPARIN SOD 30 MG/0.3 ML SYRINGE SC SCH (11:16)
[2025-10-09 11:31] LABS: Anion Gap 14 (5-15); Carbon Dioxide 21 mmol/L (20-31); Potassium 3.9 mmol/L (3.5-5.1)
[2025-10-09 11:33] LABS: Calcium 8.7 mg/dL (8.7-10.4); Chloride 113 mmol/L (98-107); Sodium 148 mmol/L (136-145)
[2025-10-09 11:37] LABS: BUN/Creatinine Ratio 42.0 (10.0-20.0); Blood Urea Nitrogen 55 mg/dL (9-23); Glucose 177 mg/dL (74-106)
[2025-10-09] MEDS: ACCU-CHEK COMFORT CURVE STRIP VI SCH ×2 (13:28)
[2025-10-09] MEDS: InsuLIN REG 1unit/0.01ml Soln (100units/ml) SC SCH (13:31)
[2025-10-09] MEDS: D5W/SOD CHL 0.45% 1,000 ML IV SCH ×2 (13:34→14:43)
[2025-10-09 18:18] LABS: Potassium 3.7 mmol/L (3.5-5.1)
[2025-10-09 18:19] LABS: Anion Gap 11 (5-15); Carbon Dioxide 22 mmol/L (20-31)
[2025-10-09 18:24] LABS: BUN/Creatinine Ratio 30.3 (10.0-20.0); Calcium 8.5 mg/dL (8.7-10.4); Chloride 113 mmol/L (98-107); Sodium 146 mmol/L (136-145)
[2025-10-09 18:25] LABS: Blood Urea Nitrogen 37 mg/dL (9-23); Glucose 244 mg/dL (74-106)
[2025-10-09] MEDS: METOPROLOL TARTRATE 25 MG TAB PO SCH (23:20)
--- NOTE | 2025-10-09 23:32 | DVHSR ---
APPROVED REPORT EXAM: Two-dimensional and M-mode echocardiogram with Doppler and color Doppler. Blood Pressure: 118/58 mmHg INDICATION afib with rvr systolic ef RISK FACTORS Height: 5'7, Weight: 199 DIMENSIONS LVDd 4.4 (3.8-5.7cm) LA (2D) 4.1 (1.9-4.0cm) Aortic Root 3.9 (2.0-3.7cm) LVDs 3.8 (2.5-4.0cm) LA (MM) (1.9-4.0cm) Aortic Cusp Exc 2.0 (1.5-2.0cm) EF (%) 25.0 (55-70%) Rt. Atrium 4.3 (1.9-4.0cm) Asc. Aorta cm IVSd 0.7 (0.7-1.1cm) RV (D) 4.1 (1.8-2.4cm) PWd 1.0 (0.7-1.1cm) Mitral Valve Mitral Mitral Stenosis E wave 1.17m/s MV Mean GR. 1mmHg A wave m/s MV Peak GR. 4mmHg E/A ratio 0.0 2D MVA cm2 Aortic Valve Aortic Valve Aortic Stenosis V1 0.86m/s AO Mean GR. 6mmHg V2 1.56m/s AO Peak GR. 10mmHg LVOT Diameter 2.4 (1.8-2.4cm) Doppler MILY 2.49cm2 Other Information Quality : Technically Limited Rhythm : Technically limited study due to body habitus.patient position. pt altered Conclusion DILATED ALL CARDIAC CHAMBERS GLOBAL HYPOKINESIS OF ALL CARDIAC CHAMBERS LV EF IS ONLY 15% POSTERIOR MV CALCIFIED AORTIC SCLEROSIS NO EFFUSION IT IS END STAGE DILATED CARDIOMYOPATHY
[2025-10-10] VITALS (7 sets, daily range): BP systolic 127–151; BP diastolic 62–98; PULSE 82–111; RESP 16–20; TEMP 97.9–98.5; O2SAT 94–99
[2025-10-10 07:26] LABS: Hematocrit 41.8 % (41.0-53.0); Hemoglobin 13.7 g/dL (13.5-17.5); Mean Corpuscular Hemoglobin 31.2 pg (28.0-32.0); Mean Corpuscular Volume 95.4 fL (80.0-100.0); Nucleated Red Blood Cells % 0.1 %
[2025-10-10] MEDS ORDERED: DEXTROSE (50%) 50ML SYRG IV PRN (14:30)
--- NOTE | 2025-10-10 14:32 | DVHPN2 ---
Subjective Patient denies any symptoms at this time. Reviewed: Care Plan, H&P, Labs, Medications Changes from previous H/P or p: No Changes General: Per HPI Objective Vitals Vital Signs Date Time Temp Pulse Resp B/P (MAP) Pulse Ox O2 Delivery O2 Flow Rate FiO2 10/10/25 10:27 98 115/81 10/10/25 08:58 20 99 10/10/25 05:00 97.9 97.9 10/09/25 21:50 Room Air* 0 21 Intake/Output Intake and Output 10/10/25 07:00 Intake Total 441.66 ml Output Total 2800 ml Balance -2358.34 ml Intake Oral 300 ml IV Total 141.66 ml Output Urine Total 2800 ml General Appearance: Alert, Oriented X3, Cooperative, No acute distress, Other (Generally unkempt) HEENT: Atraumatic, PERRLA Lungs: Clear to auscultation, Normal air movement Cardiovascular: Normal S1, Normal S2 Abdomen: Normal bowel sounds, Soft, No tenderness, No hepatospenomegaly Genitourinary: No Apparent Abnormalities Musculoskeletal: Normal sensory function, Normal motor function Extremities: No clubbing, No cyanosis, Normal pulses Skin: Dry, Intact Psych/Mental Status: Mental status NL, Mood NL Medications Current Medications Medications Dose Ordered Sig/Bonita Route Start Time Stop Time Status Last Admin Dose Admin Insulin Glargine 15 units DAILY SC 10/09/25 10:00 10/10/25 09:38 15 UNITS Ceftriaxone Sodium 50 ml @ 100 mls/hr DAILY@09 IV 10/09/25 09:00 10/10/25 09:28 100 MLS/HR Ondansetron HCl 4 mg Q4HP PRN IV 10/08/25 23:15 Nitroglycerin 0.4 mg Q5MINP PRN SL 10/08/25 23:15 Morphine Sulfate 2 mg Q30M PRN IV 10/08/25 23:15 Metoprolol Tartrate 25 mg BID PO 10/09/25 22:00 10/10/25 09:27 25 MG Apixaban 2.5 mg BID PO 10/10/25 22:00 UNV Diagnostic Test (Pha) 1 strip ACHS 10/10/25 17:00 UNV Insulin Human Regular HS SC 10/10/25 22:00 UNV Insulin Human Regular AC SC 10/10/25 17:00 UNV Dextrose 50 ml UD PRN IV 10/10/25 14:30 UNV Laboratory Results Laboratory Tests 10/09/25 17:45 10/10/25 04:50 Chemistry Test 10/09/25 17:45 Calcium Level 8.5 mg/dL (8.7-10.4) L Urinalysis Test 10/08/25 22:19 Urine Color Light-yellow (Yellow) Urine Clarity Clear (Clear) Urine pH 5.0 (5.0-9.0) Urine Specific [place] 1.020 (1.001-1.035) Urine Protein Negative (Negative) Urine Ketones Trace (Negative) Urine Blood Trace /uL (Negative) H Urine Nitrite Negative (Negative) Urine Bilirubin Negative (Negative) Urine Urobilinogen Normal mg/dL (Negative) Urine Leukocyte Esterase Negative /uL (Negative) Urine RBC 5 /hpf (0 - 3) Urine Microscopic WBC 2 /HPF (0-3) Urine Squamous Epithelial Cells Few /hpf (<5) Urine Bacteria None seen /hpf (None Seen) Urine Hyaline Casts Few /lpf (0 - 2) Urine Glucose 4+ mg/dL (Normal) H Microbiology Microbiology Date/Time Source Procedure Growth Status 10/08/25 20:20 Blood Blood Culture - Preliminary NO GROWTH AFTER 24 HOURS OF INCUBATION. Resulted Labs and/or images reviewed: Labs reviewed by me, Image(s) reviewed by me Assessment/Plan Assessment/Plan Impression: -diabetic ketoacidosis -acute hypoxic respiratory failure -AFib with RVR -diabetes mellitus -metabolic encephalopathy -obesity -acute kidney injury, vasomotor nephropathy -acute systolic heart failure Plan: -stop insulin drip -continue with Lantus, regular insulin sliding scale -continue D5 NS given elevated serum osmolality -O2 supplementation to keep saturation greater than 90% -echocardiogram -PPI -continue amiodarone drip -repeat labs and chest x-ray in a.m. -transferred to telemetry floor Total time spent with patient discussing and formulating plan of care: 35 minutes. This medical document was created using an electronic medical record system with [employer] system. Although this document has been carefully reviewed, there may still be some phonetic and typographical errors. These areas are purely typographical due to imperfections of the software programs, and do not reflect any compromise in the patient's medical care. Plan discussed with: Patient, Other My Orders Orders - MISSY SPENCER NP Procedure Category Date Status Time Apixaban (Eliquis) PHA 10/10/25 Logged 22:00 Basic Metabolic Panel LAB 10/10/25 Logged 14:17 Magnesium LAB 10/10/25 Logged 14:17 Osmolality, Serum LAB 10/10/25 Logged 14:17 Glucose Blood PHA 10/10/25 Logged (Accu-Chek Comfort 17:00 Insulin R (Human) PHA 10/10/25 Logged (Insulin R) 22:00 Insulin R (Human) PHA 10/10/25 Logged (Insulin R) 17:00 Dextrose 50% Syringe PHA 10/10/25 Logged 14:30 * Cardiology Consult CONS 10/10/25 Verified 14:24 Consistent DIET 10/10/25 Verified Carb([facility])Diabetes Dinner Date of Service: Oct 09, 2025 Billing Provider: MISSY SPENCER NP Common Visit Codes: [id number] CARE 30-74 MIN MISSY SPENCER NP Oct 10, 2025 14:32
--- NOTE | 2025-10-10 14:34 | DVHPN2 ---
Subjective Patient denies any symptoms at this time. Reviewed: Care Plan, H&P, Labs, Medications Changes from previous H/P or p: No Changes General: Per HPI Objective Vitals Vital Signs Date Time Temp Pulse Resp B/P (MAP) Pulse Ox O2 Delivery O2 Flow Rate FiO2 10/10/25 10:27 98 115/81 10/10/25 08:58 20 99 10/10/25 05:00 97.9 97.9 10/09/25 21:50 Room Air* 0 21 Intake/Output Intake and Output 10/10/25 07:00 Intake Total 441.66 ml Output Total 2800 ml Balance -2358.34 ml Intake Oral 300 ml IV Total 141.66 ml Output Urine Total 2800 ml General Appearance: Alert, Cooperative, No acute distress, Other (Generally unkempt) HEENT: Atraumatic, PERRLA Lungs: Clear to auscultation, Normal air movement Cardiovascular: Normal S1, Normal S2 Abdomen: Normal bowel sounds, Soft, No tenderness, No hepatospenomegaly Genitourinary: No Apparent Abnormalities Musculoskeletal: Normal sensory function, Normal motor function Extremities: No clubbing, No cyanosis, Normal pulses Skin: Dry, Intact Psych/Mental Status: Mental status NL, Mood NL Medications Current Medications Medications Dose Ordered Sig/Bonita Route Start Time Stop Time Status Last Admin Dose Admin Insulin Glargine 15 units DAILY SC 10/09/25 10:00 10/10/25 09:38 15 UNITS Ceftriaxone Sodium 50 ml @ 100 mls/hr DAILY@09 IV 10/09/25 09:00 10/10/25 09:28 100 MLS/HR Ondansetron HCl 4 mg Q4HP PRN IV 10/08/25 23:15 Nitroglycerin 0.4 mg Q5MINP PRN SL 10/08/25 23:15 Morphine Sulfate 2 mg Q30M PRN IV 10/08/25 23:15 Metoprolol Tartrate 25 mg BID PO 10/09/25 22:00 10/10/25 09:27 25 MG Apixaban 2.5 mg BID PO 10/10/25 22:00 UNV Diagnostic Test (Pha) 1 strip ACHS 10/10/25 17:00 UNV Insulin Human Regular HS SC 10/10/25 22:00 UNV Insulin Human Regular AC SC 10/10/25 17:00 UNV Dextrose 50 ml UD PRN IV 10/10/25 14:30 UNV Laboratory Results Laboratory Tests 10/09/25 17:45 10/10/25 04:50 Chemistry Test 10/09/25 17:45 Calcium Level 8.5 mg/dL (8.7-10.4) L Urinalysis Test 10/08/25 22:19 Urine Color Light-yellow (Yellow) Urine Clarity Clear (Clear) Urine pH 5.0 (5.0-9.0) Urine Specific [place] 1.020 (1.001-1.035) Urine Protein Negative (Negative) Urine Ketones Trace (Negative) Urine Blood Trace /uL (Negative) H Urine Nitrite Negative (Negative) Urine Bilirubin Negative (Negative) Urine Urobilinogen Normal mg/dL (Negative) Urine Leukocyte Esterase Negative /uL (Negative) Urine RBC 5 /hpf (0 - 3) Urine Microscopic WBC 2 /HPF (0-3) Urine Squamous Epithelial Cells Few /hpf (<5) Urine Bacteria None seen /hpf (None Seen) Urine Hyaline Casts Few /lpf (0 - 2) Urine Glucose 4+ mg/dL (Normal) H Microbiology Microbiology Date/Time Source Procedure Growth Status 10/08/25 20:20 Blood Blood Culture - Preliminary NO GROWTH AFTER 24 HOURS OF INCUBATION. Resulted Labs and/or images reviewed: Labs reviewed by me, Image(s) reviewed by me Assessment/Plan Assessment/Plan Impression: -diabetic ketoacidosis -acute hypoxic respiratory failure -AFib with RVR -diabetes mellitus -metabolic encephalopathy -obesity -acute kidney injury, vasomotor nephropathy -acute systolic heart failure Plan: Events: Patient refusing treatment. Echocardiogram reveals ejection fraction 15%. -cardiology consultation -continue with Lantus, regular insulin sliding scale -stop IV fluids -stop amiodarone drip, continue rate control with metoprolol tartrate -O2 supplementation to keep saturation greater than 90% -social service consultation to assist with discharge planning -PPI -repeat labs and chest x-ray in a.m. Total time spent with patient discussing and formulating plan of care: 35 minutes. This medical document was created using an electronic medical record system with [employer] system. Although this document has been carefully reviewed, there may still be some phonetic and typographical errors. These areas are purely typographical due to imperfections of the software programs, and do not reflect any compromise in the patient's medical care. Plan discussed with: Patient, Other (RN) My Orders Orders - MISSY SPENCER NP Procedure Category Date Status Time Apixaban (Eliquis) PHA 10/10/25 Logged 22:00 Basic Metabolic Panel LAB 10/10/25 Logged 14:17 Magnesium LAB 10/10/25 Logged 14:17 Osmolality, Serum LAB 10/10/25 Logged 14:17 Glucose Blood PHA 10/10/25 Logged (Accu-Chek Comfort 17:00 Insulin R (Human) PHA 10/10/25 Logged (Insulin R) 22:00 Insulin R (Human) PHA 10/10/25 Logged (Insulin R) 17:00 Dextrose 50% Syringe PHA 10/10/25 Logged 14:30 * Cardiology Consult CONS 10/10/25 Verified 14:24 Consistent DIET 10/10/25 Verified [facility]Di[facility] D[facility] Date of Service: Oct 10, 2025 Billing Provider: MISSY SPENCER NP Common Visit Codes: [id number] INP/OBS CARE(HIGH) MISSY SPENCER NP Oct 10, 2025 14:34
[2025-10-10 16:02] LABS: Potassium 3.7 mmol/L (3.5-5.1); Sodium 145 mmol/L (136-145)
[2025-10-10 16:03] LABS: Anion Gap 10 (5-15); Carbon Dioxide 23 mmol/L (20-31)
[2025-10-10 16:08] LABS: BUN/Creatinine Ratio 27.6 (10.0-20.0)
[2025-10-10 16:11] LABS: Blood Urea Nitrogen 29 mg/dL (9-23); Calcium 8.1 mg/dL (8.7-10.4); Chloride 112 mmol/L (98-107); Glucose 183 mg/dL (74-106); Magnesium 1.4 mg/dL (1.6-2.6)
[2025-10-10] MEDS: ACCU-CHEK COMFORT CURVE STRIP VI SCH (17:25)
[2025-10-10] MEDS: InsuLIN REG 1unit/0.01ml Soln (100units/ml) SC SCH ×2 (17:28→21:37)
[2025-10-10] MEDS: APIXABAN 2.5 MG TAB PO SCH (21:29)
[2025-10-11] VITALS (7 sets, daily range): BP systolic 112–135; BP diastolic 71–90; PULSE 67–109; RESP 16–19; TEMP 97.8–98.6; O2SAT 96–100
--- NOTE | 2025-10-11 09:16 | DVHINCON2 ---
Date Seen: Oct 11, 2025 Referring Physician MEREDITH Espinal Reason for Consultation Worsening systolic heart failure History of Present Illness This 70-year-old male patient who presents to the emergency room with chief complaint of altered level of mentation. At the time of assessment, the patient does not recall events prior to emergency room arrival. The patient is alert and oriented x 3 during assessment. Per ER documentation, the patient was found altered on the floor by his board and care roommates. EMS was called and the patient was brought in for further evaluation. Cardiology has been consulted at this time for worsening heart failure. Initial twelve lead electrocardiogram reveals atrial fibrillation (with artifact seen in multiple leads). The patient denies any cardiac symptoms such as chest pain, palpitations, shortness of breath, or dizziness at time of assessment. Initial troponin level of 25ng/L. Significant past medical history includes congestive heart failure, atrial fibrillation (not on DOAC), hypertension, type 2 diabetes mellitus, CVA, drug use and morbid obesity. The patient reports that he stopped taking all of his medications over one month ago. Patient states he stopped all medications because he does not like the people that he lives with. The patient denies fol lowing up with a valve mechanic in the outpatient setting. He also denies any previous cardiac workup such as stress test or coronary angiogram. Past Medical History Past medical history reviewed. No other significant than mentioned above. Past Surgical History Past surgical history reviewed. Family History Family history reviewed. Social History Patient admits to a 30 year history of methamphetamine use, states he quit greater than 10 years ago Denies any tobacco use Denies any alcohol use Allergies: Coded Allergies: NO KNOWN ALLERGIES (Unverified , 12/21/22) Home Meds The patient reports he stopped all of his medications one month ago Current Medications Current Medications Medications (Trade) Dose Ordered Sig/Bonita Route PRN Reason Start Time Stop Time Status Last Admin Apixaban (Eliquis) 2.5 mg BID PO 10/10/25 22:00 10/10/25 21:29 Diagnostic Test (Pha) (Accu-Chek Comfort Curve T) 1 strip ACHS 10/10/25 17:00 10/11/25 06:30 Insulin Human Regular (InsuLIN R) HS SC 10/10/25 22:00 10/10/25 21:37 Insulin Human Regular (InsuLIN R) AC SC 10/10/25 17:00 10/11/25 06:33 Dextrose 50 ml UD PRN IV Blood Sugar LESS THAN 60 10/10/25 14:30 Review of Systems Constitutional: No symptom reported Ears, Nose, & Throat: No symptom reported Eyes: No symptom reported Neurological: Altered level of mentation Pulmonary/Respiratory: No symptoms reported Cardiovascular: No symptom reported Gastrointestinal: No symptom reported Genitourinary: No symptom reported Musculoskeletal: No symptom reported Skin: No symptom reported Psychiatric: No symptom reported Endocrine: No symptom reported Hematologic/Lymphatic: No symptom reported Vital Signs Vital Signs Date Time Temp Pulse Resp B/P (MAP) Pulse Ox O2 Delivery O2 Flow Rate FiO2 10/11/25 05:00 98.2 82 16 135/85 (102) 98 98.2 10/10/25 20:00 Room Air* 0 21 Physical Exam General Appearance: Cooperative. Morbidly obese Pulmonary/Respiratory: Clear, bilateral breaths sounds. Cardiovascular/Chest: Irregularly irregular rate and rhythm Peripheral Pulses: 2+ Radial (R). 2+ Radial (L). 2+ Pedal (R). 2+ Pedal (L) Abdominal Exam: Normal bowel sounds. Ankle Exam: Nonpitting ankle edema Lower extremities: Nonpitting bilateral lower extremity edema Neuro/Mental Status: A/OX3 Thoughts/Psych: Normal thought pattern. Appropriate mood and affect. Good judgment and insight. Appearance: No acute distress. Skin Exam: Normal inspection. Normal color. Warm and dry. Labs/Diagnostic Data Labs Test 10/11/25 05:29 10/10/25 15:20 10/10/25 04:50 10/09/25 04:51 Range/Units POC Glucose 193 H 70-106 mg/dl Sodium Level 145 136-145 mmol/L Potassium Level 3.7 3.5-5.1 mmol/L Chloride Level 112 H 98-107 mmol/L Carbon Dioxide Level 23 20-31 mmol/L Anion Gap 10 5-15 Blood Urea Nitrogen 29 H 9-23 mg/dL Creatinine 1.05 0.700-1.30 mg/dL Glomerular Filtration Rate Calc 76 >90 mL/min BUN/Creatinine Ratio 27.6 H 10.0-20.0 Serum Glucose 183 H 74-106 mg/dL Serum Osmolality 305 H 278-298 mOsm/kg Calcium Level 8.1 L 8.7-10.4 mg/dL Magnesium Level 1.4 L 1.6-2.6 mg/dL White Blood Count 6.8 4.4-10.8 10^3/uL Red Blood Count 4.38 L 4.5-5.90 10^6/uL Hemoglobin 13.7 13.5-17.5 g/dL Hematocrit 41.8 41.0-53.0 % Mean Corpuscular Volume 95.4 # 80.0-100.0 fL Mean Corpuscular Hemoglobin 31.2 28.0-32.0 pg Mean Corpuscular Hemoglobin Concent 32.8 32.0-36.0 g/dL Red Cell Distribution Width 13.5 11.8-14.3 % Platelet Count 134 L 140-450 10^3/uL Mean Platelet Volume 9.4 6.9-10.8 fL Neutrophils (%) (Auto) 69.1 37.0-80.0 % Lymphocytes (%) (Auto) 15.7 10.0-50.0 % Monocytes (%) (Auto) 12.5 H 0.0-12.0 % Eosinophils (%) (Auto) 2.0 0.0-7.0 % Basophils (%) (Auto) 0.7 0.0-2.0 % Neutrophils # (Auto) 4.7 1.6-8.6 10 ^3/uL Lymphocytes # (Auto) 1.1 0.4-5.4 10 ^3/uL Monocytes # (Auto) 0.9 0-1.3 10 ^3/uL Eosinophils # (Auto) 0.1 0-0.8 10 ^3/uL Basophils # (Auto) 0 0-0.2 10 ^3/uL Nucleated Red Blood Cells 0.1 % Total Bilirubin 0.8 0.2-1.0 mg/dL Aspartate Amino Transferase (AST) 25 13-40 U/L Alanine Aminotransferase (ALT) 14 7-40 U/L Alkaline Phosphatase 56 46-116 U/L Total Protein 6.2 5.7-8.2 g/dL Albumin 3.2 3.2-4.8 g/dL Test 10/08/25 23:37 10/08/25 23:30 10/08/25 22:19 10/08/25 21:56 Range/Units Phosphorus Level 5.5 H 2.4-5.1 mg/dL Blood Gas Specimen Type Arterial Blood Gas Sample Site Right radial Blood Gas Patient Temperature 37.0 Arterial Blood Date Drawn [id number] Arterial Blood pH 7.386 7.350-7.450 Arterial Blood Partial Pressure CO2 26.5 L 35.0-48.0 mmHg Arterial Blood Partial Pressure O2 85.2 83.0-108.0 mmHg Arterial Blood HCO3 15.5 L 21.0-28.0 mmol/L Arterial Blood Oxygen Saturation 96.5 94.0-98.0 % Arterial Blood Base Excess -7.4 L -2.0-3.0 mmol/L Arterial Blood Oxyhemoglobin 94.8 94.0-98.0 % Arterial Blood Carboxyhemoglobin 1.2 0.5-1.5 % Arterial Blood Methemoglobin 0.6 0.0-1.5 % Arterial Blood Deoxyhemoglobin 3.4 0.0-5.0 % Rene Test Yes Blood Gas Total Hemoglobin 16.90 13.5-17.5 g/dL Blood Gas Modality Room air FiO2 % 21.0 Urine Color Light-yellow Yellow Urine Clarity Clear Clear Urine pH 5.0 5.0-9.0 Urine Specific [place] 1.020 1.001-1.035 Urine Protein Negative Negative Urine Ketones Trace Negative Urine Blood Trace H Negative /uL Urine Nitrite Negative Negative Urine Bilirubin Negative Negative Urine Urobilinogen Normal Negative mg/dL Urine Leukocyte Esterase Negative Negative /uL Urine RBC 5 0 - 3 /hpf Urine Microscopic WBC 2 0-3 /HPF Urine Squamous Epithelial Cells Few <5 /hpf Urine Bacteria None seen None Seen /hpf Urine Hyaline Casts Few 0 - 2 /lpf Urine Glucose 4+ H Normal mg/dL Urine Opiates Screen Neg NEGATIVE Urine Fentanyl Screen Neg NEGATIVE Urine Barbiturates Screen Neg NEGATIVE Urine Phencyclidine Screen Neg NEGATIVE Urine Amphetamines Screen Neg NEGATIVE Urine Benzodiazepines Screen Neg NEGATIVE Urine Cocaine Screen Neg NEGATIVE Urine Cannabinoids Screen Neg NEGATIVE Lactic Acid Level 2.1 *H 0.4-2.0 mmol/L Test 10/08/25 20:58 10/08/25 20:09 Range/Units Troponin I High Sensitivity 24 </=54 ng/L Hemoglobin A1c 13.2 H <5.7 % A1C Beta-Hydroxybutyric Acid 2.350 H < 0.4 mmol/L Plasma/Serum Blood Alcohol < 3.0 <10 mg/dL Microbiology Date/Time Source Procedure Growth Status 10/08/25 20:20 Blood Blood Culture - Preliminary NO GROWTH AFTER 48 HOURS OF INCUBATION. Resulted Assessment Acute on chronic compensated HFrEF, NYHA class III End-stage dilated cardiomyopathy, ?ischemic, ?drug-induced, ?tachycardia-induced Atrial fibrillation, likely long-standing persistent Hypertension Diabetic ketoacidosis Type 2 diabetes mellitus, uncontrolled (A1c 13.2%) History of CVA Acute kidney injury, resolved Hypomagnesemia History of methamphetamine use Morbid obesity Medication noncompliance Plan/Recommendation We will continue with the following plan/recommendations (Dr. Borja): * Transthoracic echocardiogram reveals an EF of 15% with global hypokinesis * Initiate guideline directed medical therapy for CHF * Strict intake and output, daily weights, maintain fluid restriction and low-sodium diet * [id number] VASc score: 6 points, HAS-BLED: 2 points * Rate control with beta-jeanne. (Will switch metoprolol tartrate to metoprolol succinate for GDMT guideline adherence.) * DOAC therapy with Elquis (consider full dose of 5mg BID as renal function as improved) * Avoid antiarrhythmic agents given atrial fibrillation likely persistent * Monitor and replete electrolytes as needed. Keep potassium greater than four and magnesium greater than two * Close cardiac surveillance * Risk factor modifications, counseled * Adherence to medications * Dietary and lifestyle changes The patient is now alert and oriented and able to answer all questions appropriately during assessment. The patient denies having any ischemic workup in the past such as a stress test or coronary angiogram. After discussion with the patient, the patient is refusing any kind of invasive cardiac workup at this time. The patient does not want to proceed with a coronary angiogram. The patient is also noted to be noncompliant with medications and states that he stopped all of his medications over one month ago due to his living situation and not liking his roommates. We will recommend to proceed with medical management at this time per patient request. Extensive education given to the patient regarding adherence to medications. There is no further inpatient cardiac workup indicated at this time. The patient should follow up with a valve mechanic in the outpatient setting post discharge. The patient may qualify for ICD implantation if no improvement in EF within three months on uninterrupted guideline directed medical therapy for CHF. Thank you for allowing us to care for this patient. Please call with any questions or concerns. Critical care time spent: 44 minutes This medical document was created using an electronic medical record system with voice recognition software and computerized dictation system. Although this document has been carefully reviewed, there might still be some phonetic and typographical errors. Occasional wrong-word or ``sound-alike substitutions may have occurred due to the inherent limitations of voice recognition software. These areas are purely typographical due to imperfections of the software programs and do not reflect any compromise in the patient's medical care. Please read the chart carefully and recognize, using context, where these substitutions have occurred. Plan discussed with: Patient NYHA Physical activity limitations: Class3(Marked) ordinary (activity causes symtoms) Date of Service: Oct 11, 2025 Billing Provider: LUIS ALFREDO SINGH Cardiology Common Codes: [id number] INP/OBS CARE (High) Cardiology Consultation Codes: [id number] CONSULT <45MIN LUIS ALFREDO SINGH Oct 11, 2025 09:15
[2025-10-11 10:53] LABS: Hematocrit 45.4 % (41.0-53.0); Hemoglobin 15.5 g/dL (13.5-17.5); Mean Corpuscular Hemoglobin 31.3 pg (28.0-32.0); Mean Corpuscular Volume 91.6 fL (80.0-100.0); Nucleated Red Blood Cells % 0.0 %
[2025-10-11 11:00] LABS: Chloride 103 mmol/L (98-107); Potassium 3.9 mmol/L (3.5-5.1); Sodium 138 mmol/L (136-145)
[2025-10-11 11:01] LABS: Anion Gap 8 (5-15); Carbon Dioxide 27 mmol/L (20-31)
[2025-10-11 11:06] LABS: BUN/Creatinine Ratio 17.6 (10.0-20.0); Blood Urea Nitrogen 19 mg/dL (9-23); Calcium 8.2 mg/dL (8.7-10.4); Glucose 306 mg/dL (74-106); Triglycerides 108 mg/dL (< 150)
[2025-10-11 11:08] LABS: Cholesterol 106 mg/dL (< 200)
[2025-10-11 11:11] LABS: HDL Cholesterol 28 mg/dL (40-59)
[2025-10-11] MEDS: SACUBITRIL-VALSARTAN 24mg/26mg TAB PO SCH (11:26)
[2025-10-11] MEDS: EMPAGLIFLOZIN 10 MG TAB PO SCH (11:26)
[2025-10-11] MEDS: MAGNESIUM SULFATE 1GM/100ML 100 ML IV SCH (11:28)
[2025-10-11] MEDS: SPIRONOLACTONE 25 MG TAB PO SCH (11:33)
--- NOTE | 2025-10-11 13:47 | DVHPN2 ---
Subjective Patient denies any symptoms at this time. Reviewed: Care Plan, H&P, Labs, Medications Changes from previous H/P or p: No Changes General: Per HPI Objective Vitals Vital Signs Date Time Temp Pulse Resp B/P (MAP) Pulse Ox O2 Delivery O2 Flow Rate FiO2 10/11/25 09:26 67 127/79 10/11/25 09:00 98.6 17 100 98.6 10/11/25 08:00 Room Air* 0 21 Intake/Output Intake and Output 10/11/25 07:00 Intake Total 1309 ml Output Total 2250 ml Balance -941 ml Intake Oral 900 ml IV Total 409 ml Output Urine Total 2250 ml # Bowel Movements 1 General Appearance: Alert, Cooperative, No acute distress, Other (Generally unkempt) HEENT: Atraumatic, PERRLA Lungs: Clear to auscultation, Normal air movement Cardiovascular: Normal S1, Normal S2 Abdomen: Normal bowel sounds, Soft, No tenderness, No hepatospenomegaly Genitourinary: No Apparent Abnormalities Musculoskeletal: Normal sensory function, Normal motor function Extremities: No clubbing, No cyanosis, Normal pulses Skin: Dry, Intact Psych/Mental Status: Mental status NL, Mood NL Medications Current Medications Medications Dose Ordered Sig/Bonita Route Start Time Stop Time Status Last Admin Dose Admin Insulin Glargine 15 units DAILY SC 10/09/25 10:00 10/11/25 11:43 15 UNITS Ceftriaxone Sodium 50 ml @ 100 mls/hr DAILY@09 IV 10/09/25 09:00 10/11/25 09:26 100 MLS/HR Ondansetron HCl 4 mg Q4HP PRN IV 10/08/25 23:15 Nitroglycerin 0.4 mg Q5MINP PRN SL 10/08/25 23:15 Morphine Sulfate 2 mg Q30M PRN IV 10/08/25 23:15 Apixaban 2.5 mg BID PO 10/10/25 22:00 10/11/25 09:26 2.5 MG Diagnostic Test (Pha) 1 strip ACHS 10/10/25 17:00 10/11/25 11:42 1 STRIP Insulin Human Regular HS SC 10/10/25 22:00 10/10/25 21:37 6 UNITS Insulin Human Regular AC SC 10/10/25 17:00 10/11/25 11:42 9 UNITS Dextrose 50 ml UD PRN IV 10/10/25 14:30 Metoprolol Succinate 50 mg DAILY PO 10/11/25 20:00 Empaglifozin 10 mg DAILY PO 10/11/25 10:00 10/11/25 11:26 10 MG Sacubitril/ Valsartan 1 tab BID PO 10/11/25 10:00 10/11/25 11:26 1 TAB Spironolactone 25 mg DAILY PO 10/11/25 10:00 10/11/25 11:33 25 MG Laboratory Results Laboratory Tests 10/11/25 10:26 Chemistry Test 10/10/25 15:20 10/11/25 10:26 Calcium Level 8.1 mg/dL (8.7-10.4) L 8.2 mg/dL (8.7-10.4) L Magnesium Level 1.4 mg/dL (1.6-2.6) L Lipid panel Test 10/11/25 10: Cholesterol Level 106 mg/dL (< 200) HDL Cholesterol 28 mg/dL (40-59) L Triglycerides Level 108 mg/dL (< 150) HgA1c, TSH Test 10/11/25 10: Thyroid Stimulating Hormone (TSH) 2.89 uIU/mL (0.55-4.78) Urinalysis Test 10/08/25 22:19 Urine Color Light-yellow (Yellow) Urine Clarity Clear (Clear) Urine pH 5.0 (5.0-9.0) Urine Specific [place] 1.020 (1.001-1.035) Urine Protein Negative (Negative) Urine Ketones Trace (Negative) Urine Blood Trace /uL (Negative) H Urine Nitrite Negative (Negative) Urine Bilirubin Negative (Negative) Urine Urobilinogen Normal mg/dL (Negative) Urine Leukocyte Esterase Negative /uL (Negative) Urine RBC 5 /hpf (0 - 3) Urine Microscopic WBC 2 /HPF (0-3) Urine Squamous Epithelial Cells Few /hpf (<5) Urine Bacteria None seen /hpf (None Seen) Urine Hyaline Casts Few /lpf (0 - 2) Urine Glucose 4+ mg/dL (Normal) H Microbiology Microbiology Date/Time Source Procedure Growth Status 10/08/25 20:20 Blood Blood Culture - Preliminary NO GROWTH AFTER 48 HOURS OF INCUBATION. Resulted Labs and/or images reviewed: Labs reviewed by me, Image(s) reviewed by me Assessment/Plan Assessment/Plan Impression: -diabetic ketoacidosis -acute hypoxic respiratory failure -AFib with RVR -diabetes mellitus -metabolic encephalopathy -obesity -acute kidney injury, vasomotor nephropathy -acute systolic heart failure Plan: Events: No events overnight. Patient is now more alert, still slow to respond -cardiology consultation: No ischemia workup at this time. Guideline directed medical therapy -continue with Lantus, regular insulin sliding scale -DC Bee -stop amiodarone drip, continue rate control with metoprolol tartrate -O2 supplementation to keep saturation greater than 90% -social service consultation to assist with discharge planning Total time spent with patient discussing and formulating plan of care: 35 minutes. This medical document was created using an electronic medical record system with [employer] dictation system. Although this document has been carefully reviewed, there may still be some phonetic and typographical errors. These areas are purely typographical due to imperfections of the software programs, and do not reflect any compromise in the patient's medical care. Plan discussed with: Patient, Other (RN) My Orders Orders - MISSY SPENCER NP Procedure Category Date Status Time Apixaban (Eliquis) PHA 10/10/25 In Process 22:00 Glucose Blood PHA 10/10/25 In Process (Accu-Chek Comfort 17:00 Insulin R (Human) PHA 10/10/25 In Process (Insulin R) 22:00 Insulin R (Human) PHA 10/10/25 In Process (Insulin R) 17:00 Dextrose 50% Syringe PHA 10/10/25 In Process 14:30 * Cardiology Consult CONS 10/10/25 Transmitted 14:24 Consistent DIET 10/10/25 Transmitted Carb(Ccho)Diabetes Dinner Cleanse Wound With MATILDA 10/10/25 In Process Mild Soap A 12:45 Apply Z-Guard MATILDA 10/10/25 In Process 12:45 Date of Service: Oct 11, 2025 Billing Provider: MISSY SPENCER NP Common Visit Codes: [id number] INP/OBS CARE(HIGH) MISSY SPENCER NP Oct 11, 2025 13:47
--- NOTE | 2025-10-11 14:32 | CONS ---
Pharmacy Clinical Information: From Heart Failure Fallout Report on CQM Application, Luis Flores is a 70 year old male with PMH of CHF, AFib, diabetes mellitus, CVA, dyslipidemia There is no medication history available. Please consider adding a lipid lowering drug considered he has dyslipidemia. In addition, per 202 ADA guidelines, in adults with diabetes aged 40- to 75-year-old, it may be reasonable to initiate high-intensity statin therapy after discussion of potential benefits and risks. [facility] Oct 11, 2025 14:32
[2025-10-11] MEDS: METOPROLOL SUCCINATE XL 50 MG TAB PO SCH (21:02)
[2025-10-11] MEDS: APIXABAN 5 MG TAB PO SCH (21:02)
[2025-10-12] VITALS (8 sets, daily range): BP systolic 122–140; BP diastolic 76–97; PULSE 94–124; RESP 16–18; TEMP 97.6–97.8; O2SAT 95–98
--- NOTE | 2025-10-12 16:36 | DVHPN2 ---
Subjective I am assuming the care of the patient from today onwards. Patient is currently denies any complaints. Reviewed: Care Plan, H&P, Labs, Medications Changes from previous H/P or p: No Changes General: Per HPI Objective Vitals Vital Signs Date Time Temp Pulse Resp B/P (MAP) Pulse Ox O2 Delivery O2 Flow Rate FiO2 10/12/25 13:00 97.6 99 16 140/82 (101) 98 97.6 10/12/25 07:40 Room Air* 0 21 Intake/Output Intake and Output 10/12/25 07:00 Intake Total 1665 ml Output Total 1893 ml Balance -228 ml Intake Oral 1415 ml IV Total 250 ml Output Urine Total 1893 ml # Voids 4 Exam HEENT pupils are reactive Neck is supple CV is S1-S2 irregularly irregular rate and rhythm Diminished breath sounds bases GI positive bowel sound Extremity trace edema PLUG PASTER no motor deficit General Appearance: Alert, Cooperative, No acute distress, Other (Generally unkempt) HEENT: Atraumatic, PERRLA Lungs: Clear to auscultation, Normal air movement Cardiovascular: Normal S1, Normal S2 Abdomen: Normal bowel sounds, Soft, No tenderness, No hepatospenomegaly Genitourinary: No Apparent Abnormalities Musculoskeletal: Normal sensory function, Normal motor function Extremities: No clubbing, No cyanosis, Normal pulses Skin: Dry, Intact Psych/Mental Status: Mental status NL, Mood NL Medications Current Medications Medications Dose Ordered Sig/Bonita Route Start Time Stop Time Status Last Admin Dose Admin Insulin Glargine 15 units DAILY SC 10/09/25 10:00 10/12/25 10:03 15 UNITS Ceftriaxone Sodium 50 ml @ 100 mls/hr DAILY@09 IV 10/09/25 09:00 10/12/25 10:02 100 MLS/HR Ondansetron HCl 4 mg Q4HP PRN IV 10/08/25 23:15 Nitroglycerin 0.4 mg Q5MINP PRN SL 10/08/25 23:15 Morphine Sulfate 2 mg Q30M PRN IV 10/08/25 23:15 Diagnostic Test (Pha) 1 strip ACHS 10/10/25 17:00 10/12/25 16:30 1 STRIP Insulin Human Regular HS SC 10/10/25 22:00 10/11/25 21:10 4 UNITS Insulin Human Regular AC SC 10/10/25 17:00 10/12/25 16:35 9 UNITS Dextrose 50 ml UD PRN IV 10/10/25 14:30 Metoprolol Succinate 50 mg DAILY PO 10/11/25 20:00 10/12/25 10:03 50 MG Empaglifozin 10 mg DAILY PO 10/11/25 10:00 10/12/25 10:02 10 MG Sacubitril/ Valsartan 1 tab BID PO 10/11/25 10:00 10/12/25 10:02 1 TAB Spironolactone 25 mg DAILY PO 10/11/25 10:00 10/12/25 10:02 25 MG Apixaban 5 mg BID PO 10/11/25 22:00 10/12/25 10:02 5 MG Docusate Sodium 100 mg BIDPRN PRN PO 10/12/25 16:15 Acetaminophen 650 mg Q6HP PRN PO 10/12/25 16:15 Laboratory Results Laboratory Tests 10/11/25 10:26 Urinalysis Test 10/08/25 22:19 Urine Color Light-yellow (Yellow) Urine Clarity Clear (Clear) Urine pH 5.0 (5.0-9.0) Urine Specific [place] 1.020 (1.001-1.035) Urine Protein Negative (Negative) Urine Ketones Trace (Negative) Urine Blood Trace /uL (Negative) H Urine Nitrite Negative (Negative) Urine Bilirubin Negative (Negative) Urine Urobilinogen Normal mg/dL (Negative) Urine Leukocyte Esterase Negative /uL (Negative) Urine RBC 5 /hpf (0 - 3) Urine Microscopic WBC 2 /HPF (0-3) Urine Squamous Epithelial Cells Few /hpf (<5) Urine Bacteria None seen /hpf (None Seen) Urine Hyaline Casts Few /lpf (0 - 2) Urine Glucose 4+ mg/dL (Normal) H Microbiology Microbiology Date/Time Source Procedure Growth Status 10/11/25 14:00 Nose MRSA Screen - Final Complete 10/08/25 20:20 Blood Blood Culture - Preliminary NO GROWTH AFTER 72 HOURS OF INCUBATION. Resulted Assessment/Plan Assessment/Plan 70-year-old male with a known history of end-stage heart disease with dilated cardiomyopathy with the EF of 15% presented to the hospital with altered mental status found to have 1. AFib with RVR 2. Diabetic ketoacidosis resolved 3. Acute hypoxic respiratory failure secondary to acute CHF exacerbation 4. Acute CHF exacerbation with systolic dysfunction 5. 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 Acute kidney injury suspected secondary to vasomotor nephropathy 8.. Morbid obesity classII -continue beta jeanne consider adding MARYSOL inhibitor follow up Cardiology recommendations continue anticoagulation for primary prevention of stroke -diabetic education, subcutaneous long-acting insulin Plan discussed with: Other My Orders Orders - JAZ HEBERT MD Procedure Category Date Status Time Pt Request For Service PT 10/12/25 Logged 15:49 Docusate Sodium PHA 10/12/25 In Process Capsule (Colace 16:15 Acetaminophen Tablet PHA 10/12/25 In Process (Tylenol Tablet) 16:15 Problem List: (1) Atrial fibrillation with rapid ventricular response (2) Elevated lactic acid level (3) Altered mental status Date of Service: Oct 12, 2025 Billing Provider: JAZ HEBERT MD Common Visit Codes: [id number] INP/OBS CARE(HIGH) JAZ HEBERT MD Oct 12, 2025 16:36
[2025-10-12] MEDS: DOCUSATE SOD 100 MG CAP PO PRN (17:49)
[2025-10-13] VITALS (7 sets, daily range): BP systolic 110–133; BP diastolic 78–84; PULSE 100–111; RESP 18–20; TEMP 84.5–98.3; O2SAT 92–98
--- NOTE | 2025-10-13 11:39 | DVHPN2 ---
Subjective Patient denies any symptoms at this time. Reviewed: Care Plan, H&P, Labs, Medications Changes from previous H/P or p: No Changes General: Per HPI Objective Vitals Vital Signs Date Time Temp Pulse Resp B/P (MAP) Pulse Ox O2 Delivery O2 Flow Rate FiO2 10/13/25 11:07 103 124/83 10/13/25 09:00 98.3 20 92 98.3 10/12/25 20:00 Room Air* 0 21 Intake/Output Intake and Output 10/13/25 07:00 Intake Total 1030 ml Output Total 700 ml Balance 330 ml Intake Oral 980 ml IV Total 50 ml Output Urine Total 700 ml # Voids 7 # Bowel Movements 2 General Appearance: Alert, Cooperative, No acute distress, Other (Generally unkempt) HEENT: Atraumatic, PERRLA Lungs: Clear to auscultation, Normal air movement Cardiovascular: Normal S1, Normal S2 Abdomen: Normal bowel sounds, Soft, No tenderness, No hepatospenomegaly Genitourinary: No Apparent Abnormalities Musculoskeletal: Normal sensory function, Normal motor function Extremities: No clubbing, No cyanosis, Normal pulses Skin: Dry, Intact Psych/Mental Status: Mental status NL, Mood NL Medications Current Medications Medications Dose Ordered Sig/Bonita Route Start Time Stop Time Status Last Admin Dose Admin Insulin Glargine 15 units DAILY SC 10/09/25 10:00 10/13/25 11:18 15 UNITS Ceftriaxone Sodium 50 ml @ 100 mls/hr DAILY@09 IV 10/09/25 09:00 10/13/25 11:08 100 MLS/HR Ondansetron HCl 4 mg Q4HP PRN IV 10/08/25 23:15 Nitroglycerin 0.4 mg Q5MINP PRN SL 10/08/25 23:15 Morphine Sulfate 2 mg Q30M PRN IV 10/08/25 23:15 Diagnostic Test (Pha) 1 strip ACHS 10/10/25 17:00 10/13/25 06:13 1 STRIP Insulin Human Regular HS SC 10/10/25 22:00 10/12/25 21:54 3 UNITS Insulin Human Regular AC SC 10/10/25 17:00 10/13/25 06:18 6 UNITS Dextrose 50 ml UD PRN IV 10/10/25 14:30 Metoprolol Succinate 50 mg DAILY PO 10/11/25 20:00 10/13/25 11:07 50 MG Empaglifozin 10 mg DAILY PO 10/11/25 10:00 10/13/25 11:07 10 MG Sacubitril/ Valsartan 1 tab BID PO 10/11/25 10:00 10/13/25 11:06 1 TAB Spironolactone 25 mg DAILY PO 10/11/25 10:00 10/13/25 11:06 25 MG Apixaban 5 mg BID PO 10/11/25 22:00 10/13/25 11:06 5 MG Docusate Sodium 100 mg BIDPRN PRN PO 10/12/25 16:15 10/12/25 21:47 100 MG Acetaminophen 650 mg Q6HP PRN PO 10/12/25 16:15 Laboratory Results Laboratory Tests 10/11/25 10:26 Urinalysis Test 10/08/25 22:19 Urine Color Light-yellow (Yellow) Urine Clarity Clear (Clear) Urine pH 5.0 (5.0-9.0) Urine Specific [place] 1.020 (1.001-1.035) Urine Protein Negative (Negative) Urine Ketones Trace (Negative) Urine Blood Trace /uL (Negative) H Urine Nitrite Negative (Negative) Urine Bilirubin Negative (Negative) Urine Urobilinogen Normal mg/dL (Negative) Urine Leukocyte Esterase Negative /uL (Negative) Urine RBC 5 /hpf (0 - 3) Urine Microscopic WBC 2 /HPF (0-3) Urine Squamous Epithelial Cells Few /hpf (<5) Urine Bacteria None seen /hpf (None Seen) Urine Hyaline Casts Few /lpf (0 - 2) Urine Glucose 4+ mg/dL (Normal) H Microbiology Microbiology Date/Time Source Procedure Growth Status 10/11/25 14:00 Nose MRSA Screen - Final Complete 10/08/25 20:20 Blood Blood Culture - Preliminary NO GROWTH AFTER 72 HOURS OF INCUBATION. Resulted Labs and/or images reviewed: Labs reviewed by me, Image(s) reviewed by me Assessment/Plan Assessment/Plan Impression: -diabetic ketoacidosis -acute hypoxic respiratory failure -AFib with RVR -diabetes mellitus -metabolic encephalopathy -obesity -acute kidney injury, vasomotor nephropathy -acute systolic heart failure Plan: Events: No events overnight. Blood sugars controlled. Currently on on guideline directed medical therapy for new diagnosis of heart failure. Patient states that he is not welcome back to his residential facility. Appreciate social service consultation for assisting with discharge planning. -cardiology consultation: No ischemia workup at this time. Guideline directed medical therapy -continue with Lantus, regular insulin sliding scale -O2 supplementation to keep saturation greater than 90% -social service consultation to assist with discharge planning Total time spent with patient discussing and formulating plan of care: 35 minutes. This medical document was created using an electronic medical record system with [employer] dictation system. Although this document has been carefully reviewed, there may still be some phonetic and typographical errors. These areas are purely typographical due to imperfections of the software programs, and do not reflect any compromise in the patient's medical care. Plan discussed with: Patient, Other (RN) Date of Service: Oct 13, 2025 Billing Provider: MISSY SPENCER NP Common Visit Codes: [id number] INP/OBS CARE(HIGH) MISSY SPENCER NP Oct 13, 2025 11:39
[2025-10-13] MEDS: ACETAMINOPHEN 325 MG TAB PO PRN (17:01)
[2025-10-14] VITALS (7 sets, daily range): BP systolic 91–133; BP diastolic 60–87; PULSE 85–107; RESP 18–19; TEMP 97.1–98.5; O2SAT 92–98
--- NOTE | 2025-10-14 11:50 | DVHPN2 ---
Reviewed: Care Plan, H&P, Labs, Medications Changes from previous H/P or p: No Changes General: Per HPI Objective Vitals Vital Signs Date Time Temp Pulse Resp B/P (MAP) Pulse Ox O2 Delivery O2 Flow Rate FiO2 10/14/25 09:53 107 112/82 10/14/25 05:00 97.9 18 98 97.9 10/13/25 20:00 Room Air* 0 21 Intake/Output Intake and Output 10/14/25 07:00 Intake Total 2580 ml Output Total 600 ml Balance 1980 ml Intake Oral 2580 ml Output Urine Total 600 ml # Voids 3 General Appearance: Alert, Cooperative, No acute distress, Other (Generally unkempt) HEENT: Atraumatic, PERRLA Lungs: Clear to auscultation, Normal air movement Cardiovascular: Normal S1, Normal S2 Abdomen: Normal bowel sounds, Soft, No tenderness, No hepatospenomegaly Genitourinary: No Apparent Abnormalities Musculoskeletal: Normal sensory function, Normal motor function Extremities: No clubbing, No cyanosis, Normal pulses Skin: Dry, Intact Psych/Mental Status: Mental status NL, Mood NL Medications Current Medications Medications Dose Ordered Sig/Bonita Route Start Time Stop Time Status Last Admin Dose Admin Insulin Glargine 15 units DAILY SC 10/09/25 10:00 10/14/25 09:57 15 UNITS Ceftriaxone Sodium 50 ml @ 100 mls/hr DAILY@09 IV 10/09/25 09:00 10/14/25 09:47 100 MLS/HR Ondansetron HCl 4 mg Q4HP PRN IV 10/08/25 23:15 Nitroglycerin 0.4 mg Q5MINP PRN SL 10/08/25 23:15 Morphine Sulfate 2 mg Q30M PRN IV 10/08/25 23:15 Diagnostic Test (Pha) 1 strip ACHS 10/10/25 17:00 10/14/25 06:45 1 STRIP Insulin Human Regular HS SC 10/10/25 22:00 10/13/25 21:15 4 UNITS Insulin Human Regular AC SC 10/10/25 17:00 10/14/25 06:46 3 UNITS Dextrose 50 ml UD PRN IV 10/10/25 14:30 Metoprolol Succinate 50 mg DAILY PO 10/11/25 20:00 10/14/25 09:53 50 MG Empaglifozin 10 mg DAILY PO 10/11/25 10:00 10/14/25 09:48 10 MG Sacubitril/ Valsartan 1 tab BID PO 10/11/25 10:00 10/14/25 09:48 1 TAB Spironolactone 25 mg DAILY PO 10/11/25 10:00 10/14/25 09:48 25 MG Apixaban 5 mg BID PO 10/11/25 22:00 10/14/25 09:48 5 MG Docusate Sodium 100 mg BIDPRN PRN PO 10/12/25 16:15 10/14/25 09:48 100 MG Acetaminophen 650 mg Q6HP PRN PO 10/12/25 16:15 10/14/25 09:48 650 MG Laboratory Results Laboratory Tests 10/11/25 10:26 Urinalysis Test 10/08/25 22:19 Urine Color Light-yellow (Yellow) Urine Clarity Clear (Clear) Urine pH 5.0 (5.0-9.0) Urine Specific [place] 1.020 (1.001-1.035) Urine Protein Negative (Negative) Urine Ketones Trace (Negative) Urine Blood Trace /uL (Negative) H Urine Nitrite Negative (Negative) Urine Bilirubin Negative (Negative) Urine Urobilinogen Normal mg/dL (Negative) Urine Leukocyte Esterase Negative /uL (Negative) Urine RBC 5 /hpf (0 - 3) Urine Microscopic WBC 2 /HPF (0-3) Urine Squamous Epithelial Cells Few /hpf (<5) Urine Bacteria None seen /hpf (None Seen) Urine Hyaline Casts Few /lpf (0 - 2) Urine Glucose 4+ mg/dL (Normal) H Microbiology Microbiology Date/Time Source Procedure Growth Status 10/11/25 14:00 Nose MRSA Screen - Final Complete 10/08/25 20:20 Blood Blood Culture - Final NO GROWTH AFTER 5 DAYS OF INCUBATION. Complete Labs and/or images reviewed: Labs reviewed by me, Image(s) reviewed by me Assessment/Plan Assessment/Plan Covering for Nurse practitioner Melvin escamilla Acute on chronic compensated HFrEF, NYHA class III End-stage dilated cardiomyopathy, ?ischemic, ?drug-induced, ?tachycardia-induced Atrial fibrillation, likely long-standing persistent Hypertension Diabetic ketoacidosis Type 2 diabetes mellitus, uncontrolled (A1c 13.2%) History of CVA Acute kidney injury, resolved Hypomagnesemia History of methamphetamine use Morbid obesity Medication noncompliance Time Spent 45 minutes Prognosis very poor Plan discussed with: Patient Date of Service: Oct 14, 2025 Billing Provider: KIRK BARON MD Common Visit Codes: [id number] INP/OBS CARE(HIGH) KIRK BARON MD Oct 14, 2025 11:50
[2025-10-14] MEDS: LIDOCAINE 2% TOPICAL JELLY 5 ML URJT TOP ONE (13:32)
[2025-10-15] VITALS (8 sets, daily range): BP systolic 100–122; BP diastolic 67–87; PULSE 88–106; RESP 17–20; TEMP 97.5–99; O2SAT 95–99
--- NOTE | 2025-10-15 11:37 | DVHPN2 ---
Reviewed: Care Plan, H&P, Labs, Medications Changes from previous H/P or p: No Changes General: Per HPI Objective Vitals Vital Signs Date Time Temp Pulse Resp B/P (MAP) Pulse Ox O2 Delivery O2 Flow Rate FiO2 10/15/25 09:22 95 121/75 10/15/25 09:00 97.5 18 99 97.5 10/15/25 08:00 Room Air* 0 21 Intake/Output Intake and Output 10/15/25 07:00 Intake Total 2350 ml Output Total 3500 ml Balance -1150 ml Intake Oral 2300 ml IV Total 50 ml Output Urine Total 3500 ml General Appearance: Alert, Cooperative, No acute distress, Other (Generally unkempt) HEENT: Atraumatic, PERRLA Lungs: Clear to auscultation, Normal air movement Cardiovascular: Normal S1, Normal S2 Abdomen: Normal bowel sounds, Soft, No tenderness, No hepatospenomegaly Genitourinary: No Apparent Abnormalities Musculoskeletal: Normal sensory function, Normal motor function Extremities: No clubbing, No cyanosis, Normal pulses Skin: Dry, Intact Psych/Mental Status: Mental status NL, Mood NL Medications Current Medications Medications Dose Ordered Sig/Bonita Route Start Time Stop Time Status Last Admin Dose Admin Insulin Glargine 15 units DAILY SC 10/09/25 10:00 10/15/25 09:14 15 UNITS Ceftriaxone Sodium 50 ml @ 100 mls/hr DAILY@09 IV 10/09/25 09:00 10/15/25 09:24 100 MLS/HR Ondansetron HCl 4 mg Q4HP PRN IV 10/08/25 23:15 Nitroglycerin 0.4 mg Q5MINP PRN SL 10/08/25 23:15 Morphine Sulfate 2 mg Q30M PRN IV 10/08/25 23:15 Diagnostic Test (Pha) 1 strip ACHS 10/10/25 17:00 10/15/25 06:42 1 STRIP Insulin Human Regular HS SC 10/10/25 22:00 10/14/25 22:34 6 UNITS Insulin Human Regular AC SC 10/10/25 17:00 10/14/25 17:29 3 UNITS Dextrose 50 ml UD PRN IV 10/10/25 14:30 Metoprolol Succinate 50 mg DAILY PO 10/11/25 20:00 10/15/25 09:22 50 MG Empaglifozin 10 mg DAILY PO 10/11/25 10:00 10/15/25 09:18 10 MG Sacubitril/ Valsartan 1 tab BID PO 10/11/25 10:00 10/15/25 09:20 1 TAB Spironolactone 25 mg DAILY PO 10/11/25 10:00 10/15/25 09:18 25 MG Apixaban 5 mg BID PO 10/11/25 22:00 10/15/25 09:18 5 MG Docusate Sodium 100 mg BIDPRN PRN PO 10/12/25 16:15 10/14/25 09:48 100 MG Acetaminophen 650 mg Q6HP PRN PO 10/12/25 16:15 10/14/25 09:48 650 MG Laboratory Results Laboratory Tests 10/11/25 10:26 Urinalysis Test 10/08/25 22:19 Urine Color Light-yellow (Yellow) Urine Clarity Clear (Clear) Urine pH 5.0 (5.0-9.0) Urine Specific [place] 1.020 (1.001-1.035) Urine Protein Negative (Negative) Urine Ketones Trace (Negative) Urine Blood Trace /uL (Negative) H Urine Nitrite Negative (Negative) Urine Bilirubin Negative (Negative) Urine Urobilinogen Normal mg/dL (Negative) Urine Leukocyte Esterase Negative /uL (Negative) Urine RBC 5 /hpf (0 - 3) Urine Microscopic WBC 2 /HPF (0-3) Urine Squamous Epithelial Cells Few /hpf (<5) Urine Bacteria None seen /hpf (None Seen) Urine Hyaline Casts Few /lpf (0 - 2) Urine Glucose 4+ mg/dL (Normal) H Microbiology Microbiology Date/Time Source Procedure Growth Status 10/11/25 14:00 Nose MRSA Screen - Final Complete 10/08/25 20:20 Blood Blood Culture - Final NO GROWTH AFTER 5 DAYS OF INCUBATION. Complete Assessment/Plan Assessment/Plan Covering for Nurse practitioner Melvin escamilla Acute on chronic compensated HFrEF, NYHA class III End-stage dilated cardiomyopathy, ?ischemic, ?drug-induced, ?tachycardia-induced Atrial fibrillation, likely long-standing persistent Hypertension Diabetic ketoacidosis Type 2 diabetes mellitus, uncontrolled (A1c 13.2%) History of CVA Acute kidney injury, resolved Hypomagnesemia History of methamphetamine use Morbid obesity Medication noncompliance Time Spent 48 minutes Prognosis very poor Plan discussed with: Patient My Orders Orders - KIRK BARON MD Procedure Category Date Status Time Communication Order ORDERS 10/14/25 Transmitted 11:50 Date of Service: Oct 15, 2025 Billing Provider: KIRK BARON MD Common Visit Codes: [id number] INP/OBS CARE(HIGH) KIRK BARON MD Oct 15, 2025 11:37
[2025-10-16] VITALS (9 sets, daily range): BP systolic 108–124; BP diastolic 71–86; PULSE 61–100; RESP 18–19; TEMP 97.2–98; O2SAT 94–100
[2025-10-16 11:08] LABS: Hematocrit 49.7 % (41.0-53.0); Hemoglobin 17.3 g/dL (13.5-17.5); Mean Corpuscular Hemoglobin 31.8 pg (28.0-32.0); Mean Corpuscular Volume 91.5 fL (80.0-100.0); Nucleated Red Blood Cells % 0.1 %
[2025-10-16 11:29] LABS: Alanine Aminotransferase 18 U/L (7-40); Albumin 3.5 g/dL (3.2-4.8); Alkaline Phosphatase 72 U/L (46-116); Anion Gap 9 (5-15); BUN/Creatinine Ratio 16.4 (10.0-20.0); Bilirubin, Total 0.4 mg/dL (0.2-1.0); Blood Urea Nitrogen 22 mg/dL (9-23); Carbon Dioxide 28 mmol/L (20-31); Chloride 105 mmol/L (98-107); Potassium 4.4 mmol/L (3.5-5.1); Sodium 142 mmol/L (136-145); Total Protein 7.0 g/dL (5.7-8.2)
[2025-10-16 11:30] LABS: Calcium 8.6 mg/dL (8.7-10.4); Glucose 223 mg/dL (74-106)
--- NOTE | 2025-10-16 14:16 | DVHPN2 ---
Subjective Patient denies any symptoms at this time. Reviewed: Care Plan, H&P, Labs, Medications Changes from previous H/P or p: No Changes General: Per HPI Objective Vitals Vital Signs Date Time Temp Pulse Resp B/P (MAP) Pulse Ox O2 Delivery O2 Flow Rate FiO2 10/16/25 10:02 85 118/79 10/16/25 09:00 97.2 19 95 97.2 10/16/25 08:00 Room Air* 0 21 Intake/Output Intake and Output 10/16/25 07:00 Intake Total 990 ml Output Total 4300 ml Balance -3310 ml Intake Oral 990 ml Output Urine Total 4300 ml # Bowel Movements 1 General Appearance: Alert, Cooperative, No acute distress, Other (Generally unkempt) HEENT: Atraumatic, PERRLA Lungs: Clear to auscultation, Normal air movement Cardiovascular: Normal S1, Normal S2 Abdomen: Normal bowel sounds, Soft, No tenderness, No hepatospenomegaly Genitourinary: No Apparent Abnormalities Musculoskeletal: Normal sensory function, Normal motor function Extremities: No clubbing, No cyanosis, Normal pulses Skin: Dry, Intact Psych/Mental Status: Mental status NL, Mood NL Medications Current Medications Medications Dose Ordered Sig/Bonita Route Start Time Stop Time Status Last Admin Dose Admin Insulin Glargine 15 units DAILY SC 10/09/25 10:00 10/16/25 10:06 15 UNITS Ondansetron HCl 4 mg Q4HP PRN IV 10/08/25 23:15 Nitroglycerin 0.4 mg Q5MINP PRN SL 10/08/25 23:15 Morphine Sulfate 2 mg Q30M PRN IV 10/08/25 23:15 Diagnostic Test (Pha) 1 strip ACHS 10/10/25 17:00 10/16/25 11:30 1 STRIP Insulin Human Regular HS SC 10/10/25 22:00 10/15/25 21:24 6 UNITS Insulin Human Regular AC SC 10/10/25 17:00 10/16/25 11:30 6 UNITS Dextrose 50 ml UD PRN IV 10/10/25 14:30 Metoprolol Succinate 50 mg DAILY PO 10/11/25 20:00 10/16/25 10:02 50 MG Empaglifozin 10 mg DAILY PO 10/11/25 10:00 10/16/25 10:02 10 MG Sacubitril/ Valsartan 1 tab BID PO 10/11/25 10:00 10/16/25 10:02 1 TAB Spironolactone 25 mg DAILY PO 10/11/25 10:00 10/16/25 10:02 25 MG Apixaban 5 mg BID PO 10/11/25 22:00 10/16/25 10:02 5 MG Docusate Sodium 100 mg BIDPRN PRN PO 10/12/25 16:15 10/14/25 09:48 100 MG Acetaminophen 650 mg Q6HP PRN PO 10/12/25 16:15 10/14/25 09:48 650 MG Laboratory Results Laboratory Tests 10/16/25 10:39 Chemistry Test 10/16/25 10:39 Albumin 3.5 g/dL (3.2-4.8) Calcium Level 8.6 mg/dL (8.7-10.4) L Total Protein 7.0 g/dL (5.7-8.2) LFT Test 10/16/25 10:39 Alanine Aminotransferase (ALT) 18 U/L (7-40) Alkaline Phosphatase 72 U/L (46-116) Aspartate Amino Transferase (AST) 25 U/L (13-40) Total Bilirubin 0.4 mg/dL (0.2-1.0) Urinalysis Test 10/08/25 22:19 Urine Color Light-yellow (Yellow) Urine Clarity Clear (Clear) Urine pH 5.0 (5.0-9.0) Urine Specific [place] 1.020 (1.001-1.035) Urine Protein Negative (Negative) Urine Ketones Trace (Negative) Urine Blood Trace /uL (Negative) H Urine Nitrite Negative (Negative) Urine Bilirubin Negative (Negative) Urine Urobilinogen Normal mg/dL (Negative) Urine Leukocyte Esterase Negative /uL (Negative) Urine RBC 5 /hpf (0 - 3) Urine Microscopic WBC 2 /HPF (0-3) Urine Squamous Epithelial Cells Few /hpf (<5) Urine Bacteria None seen /hpf (None Seen) Urine Hyaline Casts Few /lpf (0 - 2) Urine Glucose 4+ mg/dL (Normal) H Microbiology Microbiology Date/Time Source Procedure Growth Status 10/11/25 14:00 Nose MRSA Screen - Final Complete 10/08/25 20:20 Blood Blood Culture - Final NO GROWTH AFTER 5 DAYS OF INCUBATION. Complete Labs and/or images reviewed: Labs reviewed by me, Image(s) reviewed by me Assessment/Plan Assessment/Plan Impression: -diabetic ketoacidosis -acute hypoxic respiratory failure -AFib with RVR -diabetes mellitus -metabolic encephalopathy -obesity -acute kidney injury, vasomotor nephropathy -acute systolic heart failure Plan: Events: No events overnight. Awaiting for residential facility. Non-compliant -cardiology consultation: No ischemia workup at this time. Guideline directed medical therapy -continue with Lantus, regular insulin sliding scale -O2 supplementation to keep saturation greater than 90% -social service consultation to assist with discharge planning Total time spent with patient discussing and formulating plan of care: 35 minutes. This medical document was created using an electronic medical record system with [employer] dictation system. Although this document has been carefully reviewed, there may still be some phonetic and typographical errors. These areas are purely typographical due to imperfections of the software programs, and do not reflect any compromise in the patient's medical care. Plan discussed with: Patient, Other (RN) Date of Service: Oct 16, 2025 Billing Provider: MISSY SPENCER NP Common Visit Codes: [id number] INP/OBS CARE(HIGH) MISSY SPENCER NP Oct 16, 2025 14:16
[2025-10-17] VITALS (7 sets, daily range): BP systolic 106–127; BP diastolic 55–78; PULSE 80–106; RESP 16–20; TEMP 97.6–97.8; O2SAT 94–98
[2025-10-17] MEDS ORDERED: INSU1INJ19 SC (10:55)
[2025-10-17] MEDS ORDERED: METO-6 PO (10:55)
[2025-10-17] MEDS ORDERED: APIX5TAB PO (10:55)
[2025-10-17] MEDS ORDERED: SACU1TAB PO (10:55)
[2025-10-17] MEDS ORDERED: EMPA1TAB PO (10:55)
[2025-10-17] MEDS ORDERED: SPIR25TA PO (10:55)
[2025-10-17] MEDS ORDERED: LANC-268 XX (10:56)
[2025-10-17] MEDS ORDERED: BLOO1KIT60 XX (10:56)
--- NOTE | 2025-10-17 10:59 | DVHPN2 ---
Subjective Patient denies any symptoms at this time. Reviewed: Care Plan, H&P, Labs, Medications Changes from previous H/P or p: No Changes General: Per HPI Objective Vitals Vital Signs Date Time Temp Pulse Resp B/P (MAP) Pulse Ox O2 Delivery O2 Flow Rate FiO2 10/17/25 09:14 91 123/61 10/17/25 05:00 97.8 18 94 97.8 10/16/25 20:00 Room Air* 0 21 Intake/Output Intake and Output 10/17/25 07:00 Intake Total 1390 ml Output Total 2200 ml Balance -810 ml Intake Oral 1390 ml Output Urine Total 2200 ml General Appearance: Alert, Oriented X3, Cooperative, No acute distress HEENT: Atraumatic, PERRLA Lungs: Clear to auscultation, Normal air movement Cardiovascular: Normal S1, Normal S2 Abdomen: Normal bowel sounds, Soft, No tenderness, No hepatospenomegaly Genitourinary: No Apparent Abnormalities Musculoskeletal: Normal sensory function, Normal motor function Extremities: No clubbing, No cyanosis, Normal pulses Skin: Dry, Intact Psych/Mental Status: Mental status NL, Mood NL Medications Current Medications Medications Dose Ordered Sig/Bonita Route Start Time Stop Time Status Last Admin Dose Admin Insulin Glargine 15 units DAILY SC 10/09/25 10:00 10/16/25 10:06 15 UNITS Ondansetron HCl 4 mg Q4HP PRN IV 10/08/25 23:15 Nitroglycerin 0.4 mg Q5MINP PRN SL 10/08/25 23:15 Morphine Sulfate 2 mg Q30M PRN IV 10/08/25 23:15 Diagnostic Test (Pha) 1 strip ACHS 10/10/25 17:00 10/16/25 22:13 1 STRIP Insulin Human Regular HS SC 10/10/25 22:00 10/16/25 22:12 4 UNITS Insulin Human Regular AC SC 10/10/25 17:00 10/16/25 11:30 6 UNITS Dextrose 50 ml UD PRN IV 10/10/25 14:30 Metoprolol Succinate 50 mg DAILY PO 10/11/25 20:00 10/17/25 09:14 50 MG Empaglifozin 10 mg DAILY PO 10/11/25 10:00 10/17/25 09:14 10 MG Sacubitril/ Valsartan 1 tab BID PO 10/11/25 10:00 10/16/25 22:08 1 TAB Spironolactone 25 mg DAILY PO 10/11/25 10:00 10/17/25 09:15 25 MG Apixaban 5 mg BID PO 10/11/25 22:00 10/17/25 09:15 5 MG Docusate Sodium 100 mg BIDPRN PRN PO 10/12/25 16:15 10/14/25 09:48 100 MG Acetaminophen 650 mg Q6HP PRN PO 10/12/25 16:15 10/16/25 22:08 650 MG Laboratory Results Laboratory Tests 10/16/25 10:39 Urinalysis Test 10/08/25 22:19 Urine Color Light-yellow (Yellow) Urine Clarity Clear (Clear) Urine pH 5.0 (5.0-9.0) Urine Specific [place] 1.020 (1.001-1.035) Urine Protein Negative (Negative) Urine Ketones Trace (Negative) Urine Blood Trace /uL (Negative) H Urine Nitrite Negative (Negative) Urine Bilirubin Negative (Negative) Urine Urobilinogen Normal mg/dL (Negative) Urine Leukocyte Esterase Negative /uL (Negative) Urine RBC 5 /hpf (0 - 3) Urine Microscopic WBC 2 /HPF (0-3) Urine Squamous Epithelial Cells Few /hpf (<5) Urine Bacteria None seen /hpf (None Seen) Urine Hyaline Casts Few /lpf (0 - 2) Urine Glucose 4+ mg/dL (Normal) H Microbiology Microbiology Date/Time Source Procedure Growth Status 10/11/25 14:00 Nose MRSA Screen - Final Complete 10/08/25 20:20 Blood Blood Culture - Final NO GROWTH AFTER 5 DAYS OF INCUBATION. Complete Labs and/or images reviewed: Labs reviewed by me, Image(s) reviewed by me Assessment/Plan Assessment/Plan Impression: -diabetic ketoacidosis -acute hypoxic respiratory failure -AFib with RVR -diabetes mellitus -metabolic encephalopathy -obesity -acute kidney injury, vasomotor nephropathy -acute systolic heart failure Plan: Events: No events overnight. Awaiting for residential facility. Non- compliant. No change in A/P on 10/17/25 -cardiology consultation: No ischemia workup at this time. Guideline directed medical therapy -continue with Lantus, regular insulin sliding scale -O2 supplementation to keep saturation greater than 90% -social service consultation to assist with discharge planning Total time spent with patient discussing and formulating plan of care: 35 minutes. This medical document was created using an electronic medical record system with [employer] dictation system. Although this document has been carefully reviewed, there may still be some phonetic and typographical errors. These areas are purely typographical due to imperfections of the software programs, and do not reflect any compromise in the patient's medical care. Plan discussed with: Patient, Other (RN) Date of Service: Oct 17, 2025 Billing Provider: MISSY SPENCER NP Common Visit Codes: [id number] INP/OBS CARE(MOD) MISSY SPENCER NP Oct 17, 2025 10:59
[2025-10-18 01:00] VITALS: BP 123/69; PULSE 89; RESP 18; TEMP 98.6; O2SAT 97
[2025-10-18 05:00] VITALS: BP 113/81; PULSE 88; RESP 18; TEMP 96.7; O2SAT 95
[2025-10-18 08:00] VITALS: RESP 19; O2SAT 96
[2025-10-18 09:00] VITALS: BP 110/82; PULSE 76; RESP 18; TEMP 97.6; O2SAT 96
--- NOTE | 2025-10-18 09:39 | DVHPN2 ---
Subjective Patient denies any symptoms at this time. Reviewed: Care Plan, H&P, Labs, Medications Changes from previous H/P or p: No Changes General: Per HPI Objective Vitals Vital Signs Date Time Temp Pulse Resp B/P (MAP) Pulse Ox O2 Delivery O2 Flow Rate FiO2 10/18/25 05:00 96.7 88 18 113/81 (92) 95 96.7 10/17/25 20:00 Room Air* 0 21 Intake/Output Intake and Output 10/18/25 07:00 Intake Total 1200 ml Output Total 2950 ml Balance -1750 ml Intake Oral 1200 ml Output Urine Total 2950 ml General Appearance: Alert, Oriented X3, Cooperative, No acute distress HEENT: Atraumatic, PERRLA Lungs: Clear to auscultation, Normal air movement Cardiovascular: Normal S1, Normal S2 Abdomen: Normal bowel sounds, Soft, No tenderness, No hepatospenomegaly Genitourinary: No Apparent Abnormalities Musculoskeletal: Normal sensory function, Normal motor function Extremities: No clubbing, No cyanosis, Normal pulses Skin: Dry, Intact Psych/Mental Status: Mental status NL, Mood NL Medications Current Medications Medications Dose Ordered Sig/Bonita Route Start Time Stop Time Status Last Admin Dose Admin Insulin Glargine 15 units DAILY SC 10/09/25 10:00 10/17/25 12:30 15 UNITS Ondansetron HCl 4 mg Q4HP PRN IV 10/08/25 23:15 Nitroglycerin 0.4 mg Q5MINP PRN SL 10/08/25 23:15 Morphine Sulfate 2 mg Q30M PRN IV 10/08/25 23:15 Diagnostic Test (Pha) 1 strip ACHS 10/10/25 17:00 10/18/25 06:44 1 STRIP Insulin Human Regular HS SC 10/10/25 22:00 10/17/25 22:36 3 UNITS Insulin Human Regular AC SC 10/10/25 17:00 10/18/25 06:47 2 UNITS Dextrose 50 ml UD PRN IV 10/10/25 14:30 Metoprolol Succinate 50 mg DAILY PO 10/11/25 20:00 10/17/25 09:14 50 MG Empaglifozin 10 mg DAILY PO 10/11/25 10:00 10/17/25 09:14 10 MG Sacubitril/ Valsartan 1 tab BID PO 10/11/25 10:00 10/17/25 22:25 1 TAB Spironolactone 25 mg DAILY PO 10/11/25 10:00 10/17/25 09:15 25 MG Apixaban 5 mg BID PO 10/11/25 22:00 10/17/25 22:24 5 MG Docusate Sodium 100 mg BIDPRN PRN PO 10/12/25 16:15 10/14/25 09:48 100 MG Acetaminophen 650 mg Q6HP PRN PO 10/12/25 16:15 10/16/25 22:08 650 MG Laboratory Results Laboratory Tests 10/16/25 10:39 Urinalysis Test 10/08/25 22:19 Urine Color Light-yellow (Yellow) Urine Clarity Clear (Clear) Urine pH 5.0 (5.0-9.0) Urine Specific [place] 1.020 (1.001-1.035) Urine Protein Negative (Negative) Urine Ketones Trace (Negative) Urine Blood Trace /uL (Negative) H Urine Nitrite Negative (Negative) Urine Bilirubin Negative (Negative) Urine Urobilinogen Normal mg/dL (Negative) Urine Leukocyte Esterase Negative /uL (Negative) Urine RBC 5 /hpf (0 - 3) Urine Microscopic WBC 2 /HPF (0-3) Urine Squamous Epithelial Cells Few /hpf (<5) Urine Bacteria None seen /hpf (None Seen) Urine Hyaline Casts Few /lpf (0 - 2) Urine Glucose 4+ mg/dL (Normal) H Microbiology Microbiology Date/Time Source Procedure Growth Status 10/11/25 14:00 Nose MRSA Screen - Final Complete 10/08/25 20:20 Blood Blood Culture - Final NO GROWTH AFTER 5 DAYS OF INCUBATION. Complete Labs and/or images reviewed: Labs reviewed by me, Image(s) reviewed by me Assessment/Plan Assessment/Plan Impression: -diabetic ketoacidosis -acute hypoxic respiratory failure -AFib with RVR -diabetes mellitus -metabolic encephalopathy -obesity -acute kidney injury, vasomotor nephropathy -acute systolic heart failure Plan: Events: No events overnight. Discussed with the patient the need to become more independent. Verbalized that he needs to be compliant with physical therapy and attempt to perform ADLs on his own accord. -cardiology consultation: No ischemia workup at this time. Guideline directed medical therapy -continue with Lantus, regular insulin sliding scale -O2 supplementation to keep saturation greater than 90% -social service consultation to assist with discharge planning Total time spent with patient discussing and formulating plan of care: 35 minutes. This medical document was created using an electronic medical record system with [employer] dictation system. Although this document has been carefully reviewed, there may still be some phonetic and typographical errors. These areas are purely typographical due to imperfections of the software programs, and do not reflect any compromise in the patient's medical care. Plan discussed with: Patient, Other (Rn) Date of Service: Oct 18, 2025 Billing Provider: MISSY SPENCER NP Common Visit Codes: [id number] INP/OBS CARE(HIGH) MISSY SPENCER NP Oct 18, 2025 09:39
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
[2025-10-18 20:00] VITALS: PULSE 82; RESP 19; O2SAT 96
[2025-10-18 21:00] VITALS: BP 98/73; PULSE 96; RESP 19; TEMP 98; O2SAT 94
[2025-10-19 01:00] VITALS: BP 110/77; PULSE 89; RESP 18; O2SAT 94
[2025-10-19 05:00] VITALS: BP 110/82; PULSE 96; RESP 17; TEMP 97.7; O2SAT 96
[2025-10-19 08:00] VITALS: RESP 19; O2SAT 96
--- NOTE | 2025-10-19 09:49 | DVHPN2 ---
Subjective Patient denies any symptoms at this time. Reviewed: Care Plan, H&P, Labs, Medications Changes from previous H/P or p: No Changes General: Per HPI Objective Vitals Vital Signs Date Time Temp Pulse Resp B/P (MAP) Pulse Ox O2 Delivery O2 Flow Rate FiO2 10/19/25 09:39 61 112/82 10/19/25 08:00 19 96 Room Air* 0 21 10/19/25 05:00 97.7 97.7 Intake/Output Intake and Output 10/19/25 07:00 Intake Total 1110 ml Output Total 2650 ml Balance -1540 ml Intake Oral 1110 ml Output Urine Total 2650 ml # Bowel Movements 1 General Appearance: Alert, Oriented X3, Cooperative, No acute distress HEENT: Atraumatic, PERRLA Lungs: Clear to auscultation, Normal air movement Cardiovascular: Normal S1, Normal S2 Abdomen: Normal bowel sounds, Soft, No tenderness, No hepatospenomegaly Genitourinary: No Apparent Abnormalities Musculoskeletal: Normal sensory function, Normal motor function Extremities: No clubbing, No cyanosis, Normal pulses Skin: Dry, Intact Psych/Mental Status: Mental status NL, Mood NL Medications Current Medications Medications Dose Ordered Sig/Bonita Route Start Time Stop Time Status Last Admin Dose Admin Insulin Glargine 15 units DAILY SC 10/09/25 10:00 10/18/25 09:50 15 UNITS Ondansetron HCl 4 mg Q4HP PRN IV 10/08/25 23:15 Nitroglycerin 0.4 mg Q5MINP PRN SL 10/08/25 23:15 Morphine Sulfate 2 mg Q30M PRN IV 10/08/25 23:15 Diagnostic Test (Pha) 1 strip ACHS 10/10/25 17:00 10/18/25 22:05 1 STRIP Insulin Human Regular HS SC 10/10/25 22:00 10/18/25 22:23 4 UNITS Insulin Human Regular AC SC 10/10/25 17:00 10/18/25 16:45 6 UNITS Dextrose 50 ml UD PRN IV 10/10/25 14:30 Metoprolol Succinate 50 mg DAILY PO 10/11/25 20:00 10/19/25 09:39 50 MG Empaglifozin 10 mg DAILY PO 10/11/25 10:00 10/19/25 09:37 10 MG Sacubitril/ Valsartan 1 tab BID PO 10/11/25 10:00 10/19/25 09:37 1 TAB Spironolactone 25 mg DAILY PO 10/11/25 10:00 10/19/25 09:37 25 MG Apixaban 5 mg BID PO 10/11/25 22:00 10/19/25 09:37 5 MG Docusate Sodium 100 mg BIDPRN PRN PO 10/12/25 16:15 10/14/25 09:48 100 MG Acetaminophen 650 mg Q6HP PRN PO 10/12/25 16:15 10/16/25 22:08 650 MG Laboratory Results Laboratory Tests 10/16/25 10:39 Urinalysis Test 10/08/25 22:19 Urine Color Light-yellow (Yellow) Urine Clarity Clear (Clear) Urine pH 5.0 (5.0-9.0) Urine Specific [place] 1.020 (1.001-1.035) Urine Protein Negative (Negative) Urine Ketones Trace (Negative) Urine Blood Trace /uL (Negative) H Urine Nitrite Negative (Negative) Urine Bilirubin Negative (Negative) Urine Urobilinogen Normal mg/dL (Negative) Urine Leukocyte Esterase Negative /uL (Negative) Urine RBC 5 /hpf (0 - 3) Urine Microscopic WBC 2 /HPF (0-3) Urine Squamous Epithelial Cells Few /hpf (<5) Urine Bacteria None seen /hpf (None Seen) Urine Hyaline Casts Few /lpf (0 - 2) Urine Glucose 4+ mg/dL (Normal) H Microbiology Microbiology Date/Time Source Procedure Growth Status 10/11/25 14:00 Nose MRSA Screen - Final Complete 10/08/25 20:20 Blood Blood Culture - Final NO GROWTH AFTER 5 DAYS OF INCUBATION. Complete Labs and/or images reviewed: Labs reviewed by me, Image(s) reviewed by me Assessment/Plan Assessment/Plan Impression: -diabetic ketoacidosis -acute hypoxic respiratory failure -AFib with RVR -diabetes mellitus -metabolic encephalopathy -obesity -acute kidney injury, vasomotor nephropathy -acute systolic heart failure Plan: Events: No events overnight. Psychiatry consultation placed. Recommendations reviewed. Lexapro was not formulary. Social service notation reviewed. Patient will need a place to be discharged to for him to be discharged at this time. -cardiology consultation: No ischemia workup at this time. Guideline directed medical therapy -continue with Lantus, regular insulin sliding scale -O2 supplementation to keep saturation greater than 90% -social service consultation to assist with discharge planning Total time spent with patient discussing and formulating plan of care: 35 minutes. This medical document was created using an electronic medical record system with [employer] dictation system. Although this document has been carefully reviewed, there may still be some phonetic and typographical errors. These areas are purely typographical due to imperfections of the software programs, and do not reflect any compromise in the patient's medical care. Plan discussed with: Patient, Other (RN) Date of Service: Oct 19, 2025 Billing Provider: MISSY SPENCER NP Common Visit Codes: [id number] INP/OBS CARE(HIGH) MISSY SPENCER NP Oct 19, 2025 09:49
--- NOTE | 2025-10-19 15:32 | DVHDS2 ---
Discharge Summary Date of Admission Oct 08, 2025 at 23:11 Date of Discharge: Oct 19, 2025 Admitting Diagnosis Diabetic ketoacidosis Labs/Diagnostic Data: Laboratory Results Test 10/19/25 09:44 10/16/25 10:39 10/11/25 10:26 10/10/25 15:20 POC Glucose 158 mg/dl (70-106) White Blood Count 7.5 10^3/uL (4.4-10.8) Red Blood Count 5.43 10^6/uL (4.5-5.90) Hemoglobin 17.3 g/dL (13.5-17.5) Hematocrit 49.7 % (41.0-53.0) Mean Corpuscular Volume 91.5 fL (80.0-100.0) Mean Corpuscular Hemoglobin 31.8 pg (28.0-32.0) Mean Corpuscular Hemoglobin Concent 34.8 g/dL (32.0-36.0) Red Cell Distribution Width 12.9 % (11.8-14.3) Platelet Count 226 10^3/uL (140-450) Mean Platelet Volume 8.9 fL (6.9-10.8) Neutrophils (%) (Auto) 69.2 % (37.0-80.0) Lymphocytes (%) (Auto) 18.5 % (10.0-50.0) Monocytes (%) (Auto) 10.3 % (0.0-12.0) Eosinophils (%) (Auto) 1.3 % (0.0-7.0) Basophils (%) (Auto) 0.7 % (0.0-2.0) Neutrophils # (Auto) 5.2 10 ^3/uL (1.6-8.6) Lymphocytes # (Auto) 1.4 10 ^3/uL (0.4-5.4) Monocytes # (Auto) 0.8 10 ^3/uL (0-1.3) Eosinophils # (Auto) 0.1 10 ^3/uL (0-0.8) Basophils # (Auto) 0.1 10 ^3/uL (0-0.2) Nucleated Red Blood Cells 0.1 % Sodium Level 142 mmol/L (136-145) Potassium Level 4.4 mmol/L (3.5-5.1) Chloride Level 105 mmol/L (98-107) Carbon Dioxide Level 28 mmol/L (20-31) Anion Gap 9 (5-15) Blood Urea Nitrogen 22 mg/dL (9-23) Creatinine 1.34 mg/dL (0.700-1.30) Glomerular Filtration Rate Calc 57 mL/min (>90) BUN/Creatinine Ratio 16.4 (10.0-20.0) Serum Glucose 223 mg/dL (74-106) Calcium Level 8.6 mg/dL (8.7-10.4) Total Bilirubin 0.4 mg/dL (0.2-1.0) Aspartate Amino Transferase (AST) 25 U/L (13-40) Alanine Aminotransferase (ALT) 18 U/L (7-40) Alkaline Phosphatase 72 U/L (46-116) Total Protein 7.0 g/dL (5.7-8.2) Albumin 3.5 g/dL (3.2-4.8) Triglycerides Level 108 mg/dL (< 150) Cholesterol Level 106 mg/dL (< 200) LDL Cholesterol 60 mg/dL (< 100) HDL Cholesterol 28 mg/dL (40-59) Thyroid Stimulating Hormone (TSH) 2.89 uIU/mL (0.55-4.78) Serum Osmolality 305 mOsm/kg (278-298) Magnesium Level 1.4 mg/dL (1.6-2.6) Test 10/08/25 23:37 10/08/25 23:30 10/08/25 22:19 10/08/25 21:56 Phosphorus Level 5.5 mg/dL (2.4-5.1) Blood Gas Specimen Type Arterial Blood Gas Sample Site Right radial Blood Gas Patient Temperature 37.0 Arterial Blood Date Drawn [id number] Arterial Blood pH 7.386 (7.350-7.450) Arterial Blood Partial Pressure CO2 26.5 mmHg (35.0-48.0) Arterial Blood Partial Pressure O2 85.2 mmHg (83.0-108.0) Arterial Blood HCO3 15.5 mmol/L (21.0-28.0) Arterial Blood Oxygen Saturation 96.5 % (94.0-98.0) Arterial Blood Base Excess -7.4 mmol/L (-2.0-3.0) Arterial Blood Oxyhemoglobin 94.8 % (94.0-98.0) Arterial Blood Carboxyhemoglobin 1.2 % (0.5-1.5) Arterial Blood Methemoglobin 0.6 % (0.0-1.5) Arterial Blood Deoxyhemoglobin 3.4 % (0.0-5.0) Rene Test Yes Blood Gas Total Hemoglobin 16.90 g/dL (13.5-17.5) Blood Gas Modality Room air FiO2 % 21.0 Urine Color Light-yellow (Yellow) Urine Clarity Clear (Clear) Urine pH 5.0 (5.0-9.0) Urine Specific [place] 1.020 (1.001-1.035) Urine Protein Negative (Negative) Urine Ketones Trace (Negative) Urine Blood Trace /uL (Negative) Urine Nitrite Negative (Negative) Urine Bilirubin Negative (Negative) Urine Urobilinogen Normal mg/dL (Negative) Urine Leukocyte Esterase Negative /uL (Negative) Urine RBC 5 /hpf (0 - 3) Urine Microscopic WBC 2 /HPF (0-3) Urine Squamous Epithelial Cells Few /hpf (<5) Urine Bacteria None seen /hpf (None Seen) Urine Hyaline Casts Few /lpf (0 - 2) Urine Glucose 4+ mg/dL (Normal) Urine Opiates Screen Neg (NEGATIVE) Urine Fentanyl Screen Neg (NEGATIVE) Urine Barbiturates Screen Neg (NEGATIVE) Urine Phencyclidine Screen Neg (NEGATIVE) Urine Amphetamines Screen Neg (NEGATIVE) Urine Benzodiazepines Screen Neg (NEGATIVE) Urine Cocaine Screen Neg (NEGATIVE) Urine Cannabinoids Screen Neg (NEGATIVE) Lactic Acid Level 2.1 mmol/L (0.4-2.0) Test 10/08/25 20:58 10/08/25 20:09 Troponin I High Sensitivity 24 ng/L (</=54) Hemoglobin A1c 13.2 % A1C (<5.7) Beta-Hydroxybutyric Acid 2.350 mmol/L (< 0.4) Plasma/Serum Blood Alcohol < 3.0 mg/dL (<10) Other Laboratory Tests 10/16/25 10:39 Brief Hx & Hospital Course: History of Present Illness 70-year-old male presents for evaluation of altered mental status. Patient resides at a [facility]. He was found confused on the floor by his roommates. Patient is currently lethargic oriented x1. No slurred speech or unilateral weakness noted. Course of hospitalization: Patient was treated with insulin drip with patient's DKA resolving. He was transitioned to long-acting insulin as well as regular insulin sliding scale. Given patient's history of heart failure, echocardiogram was performed which revealed ejection fraction of 15%. Patient was started on Toprol-XL 50 mg p.o. daily, Entresto one tablet b.i.d., as well as Jardiance. Patient became very difficult drain in the hospital with patient not giving any type of information on his previous residence. Patient also refusing care during the hospitalization. Patient's blood sugars have remained stable and has been cleared from medical standpoint. Psychiatric evaluation was performed with recommendations reviewed. Patient's blood pressure has been marginal, for which spironolactone will be held at this time. Patient has adequate diuresis with Jardiance. Patient will be discharged back to his facility [facility]. These medications were discussed with patient as well as patient's caregiver, Gilmer who was at the patient's bedside. Who is also noted that patient has rhythm was in AFib, paroxysmal while in the hospital, for which he was started on Eliquis 5 mg p.o. b.i.d.. He will be continued on his medication as an outpatient. Physical examination General: Alert and Oriented x3. No acute distress. Well-nourished. Obese Eyes: EOMI. Anicteric. HENT: Moist mucous membranes. Lungs: Clear to auscultation bilaterally. No accessory muscle use. Cardiovascular: Regular rate and rhythm. No murmur. No JVD. Abdomen: Soft, non-tender and non-distended. No palpable masses. Extremities: No edema. Non-tender. Skin: No rashes or lesions. Warm. Neurologic: No focal neurological deficits. CN II-XII grossly intact, but not individually tested. Psychiatric: Cooperative. Appropriate mood and affect. Total time spent with patient discussing and formulating plan of care: 35 minutes. This medical document was created using an electronic medical record system with [employer] dictation system. Although this document has been carefully reviewed, there may still be some phonetic and typographical errors. These areas are purely typographical due to imperfections of the software programs, and do not reflect any compromise in the patient's medical care. Consults/Reason for consult Cardiology: Acute decompensated systolic heart failure Condition at Discharge: Guarded Final Diagnosis/Problems List -diabetic ketoacidosis -acute hypoxic respiratory failure -AFib with RVR -diabetes mellitus -metabolic encephalopathy -obesity -acute kidney injury, vasomotor nephropathy -acute systolic heart failure Discharge Disposition: Home Discharge Instruct/Medications Diet: Consistent carbohydrate, Cardiac 2g Na,low cholest Activity: No Restrictions, As Tolerated Follow Up/Referral: Follow up with the PCP in 1-2 weeks Medications: Medication reconciliation form Scheduled Apixaban Base (Eliquis), 5 MG PO BID Empagliflozin (Jardiance), 10 MG PO DAILY Insulin Glargine (Basaglar Kwikpen), 15 UNIT SC HS Metoprolol Succinate (Toprol Xl), 50 MG PO DAILY Sacubitril-Valsartan (Entresto 24-26 mg), 1 TAB PO BID Spironolactone (Aldactone), 25 MG PO DAILY Durable Medical Equipment Blood Glucose Monitoring Suppl ([employer] Glucometer Kit/Glu W/Device), KIT XX BID, (DME) Lancets (Accu-Chek Softclix Lancet), BOX XX BID, (DME) 36 Discharge Statement: "Patient was advised to return to the ER or call 911 if any headaches, dizziness, shortness of breath, chest pain, abdominal pain, bleeding, fevers, or worsening of medical condition. Patient was counseled about treatment plan, medications, possible side effects, patientverbalized understanding. All questions were answered to the best of my ability. This discharge took greater then 30 minutes in planning, reviewing documentation, counseling the patient, and discussing with other team members." ASSESSMENT ASSESSMENT Assessment Diabetic ketoacidosis Date of Service: Oct 19, 2025 Billing Provider: MISSY SPENCER NP Common Visit Codes: [id number]/[id number] DISCH DAY >30min MISSY SPENCER NP Oct 19, 2025 15:32
[2025-10-19 15:58] VITALS: BP 112/82; PULSE 61; TEMP 36.5
[2025-10-19] MEDS ORDERED: SACU1TAB PO (16:15)
[2025-10-19] MEDS ORDERED: SPIR25TA8 PO (16:15)
[2025-10-19] MEDS ORDERED: APIX5TAB PO (16:15)
[2025-10-19] MEDS ORDERED: EMPA1TAB PO (16:15)
[2025-10-19] MEDS ORDERED: BLOO1KIT60 XX (16:15)
[2025-10-19] MEDS ORDERED: METO-6 PO (16:15)
[2025-10-19] MEDS ORDERED: LANC-347 XX (16:15)
== END 2025-10-19 16:50 | disposition home or self-care (01) | DRG 682 ==
LOC: ER 19:42 → EDUNIT# 19:42 → EDBD 19:42 → OVERFLOW 23:11 → TELE-WESTW 10-09 21:25 → WEST WING 10-14 09:41
PROVIDERS: ADMIT Nurse Practitioner Acute Care; ATTEND Nurse Practitioner Acute Care
DX: N17.0 Acute kidney failure with tubular necrosis (principal); E11.10 Type 2 diabetes mellitus with ketoacidosis without coma; G93.41 Metabolic encephalopathy; J96.01 Acute respiratory failure with hypoxia; I50.23 Acute on chronic systolic (congestive) heart failure; I11.0 Hypertensive heart disease with heart failure; E66.01 Morbid (severe) obesity due to excess calories; F39 Unspecified mood [affective] disorder; I42.0 Dilated cardiomyopathy; Z59.02 Unsheltered homelessness; E83.42 Hypomagnesemia; I25.5 Ischemic cardiomyopathy; N40.0 Benign prostatic hyperplasia without lower urinary tract symptoms; E78.5 Hyperlipidemia, unspecified; I48.0 Paroxysmal atrial fibrillation; Z86.73 Personal history of transient ischemic attack (TIA), and cerebral infarction without residual deficits; Z91.148 Patient's other noncompliance with medication regimen for other reason; Z68.36 Body mass index [BMI] 36.0-36.9, adult; Z79.899 Other long term (current) drug therapy; Z79.4 Long term (current) use of insulin
CPT/HCPCS: 36415; 36600; 70450; 71045; 80048; 80053; 80061; 80307; 80320; 81001; 82010; 82805; 82962; 83036; 83605; 83735; 83930; 84100; 84443; 84484; 85025; 87040; 87081; 93306; 96365; 96375; 97163; 99291; G0378; J1815; J2405